=== PATIENT | female | born 1945 | race Hispanic/Latino ===

== ENCOUNTER 2025-05-21 11:02 | Inpatient (IN) | payer MEDICARE ==
[~2025-05-21] VITALS: Ht 154.9 cm; Wt 62.1 kg
[2025-05-21] VITALS (16 sets, daily range): BP systolic 106–143; BP diastolic 53–69; PULSE 77–97; RESP 16–25; TEMP 97.8; O2SAT 97–99
[2025-05-21] MEDS ORDERED: LIDOCAINE HCL 400MG/20ML VIAL ONE (11:27)
[2025-05-21] MEDS ORDERED: HEParin-NS 1,000 UNIT/500 ML 1,500 ML IV ONE (11:27)
[2025-05-21] MEDS ORDERED: NITROGLYCERIN 50MG VIAL ONE (11:27)
[2025-05-21] MEDS ORDERED: IOHEXOL 350 MG/ML 100ML INFUS..BTL IV ONE ×2 (11:28→12:17)
[2025-05-21] MEDS ORDERED: MIDAZOLAM HCL 1 MG/ML 2ML VIAL ONE (11:31)
[2025-05-21] MEDS ORDERED: BIVALIRUDIN 250 MG/VIAL IV ONE (11:53)
[2025-05-21] MEDS ORDERED: EPTIFIBATIDE 75MG/100ML BOTTLE 100 ML IV ONE (12:04)
[2025-05-21] MEDS ORDERED: EPTIFIBATIDE 2 MG/ML 10 ML VIAL IVP ONE (12:05)
[2025-05-21] MEDS: 0.9%NACL 1000ML 1,000 ML IV SCH (13:30)
[2025-05-21] MEDS ORDERED: GLUCAGON 1MG KIT 1 MG ML IM PRN ×2 (13:30→14:00)
[2025-05-21] MEDS ORDERED: DEXTROSE 50%-WATER 50 ML DISP.SYRIN IV PRN ×2 (13:30→14:00)
--- NOTE | 2025-05-21 13:43 | PRN ---
PROCEDURE NOTE Indications: ACS STEMI Procedures: Coronary angiogram, PCI with balloon angioplasty, IVUS assessment, and GRACE placement in the proximal LAD, femoral angiogram Introduction: After informed written consent was obtained, the patient was brought to the Catheterization Lab in the usual fasting state. Following sterile prep and drape, a time out was performed, then moderate sedation was administered, 1mg of Versed and 50mcg of Fentanyl, then 1% Lidocaine was infiltrated into the right femoral groin. Using a Modified Seldinger technique, a 6Fr Sheath was inserted into the right common femoral artery. While under fluoroscopic guidance, diagnostic coronary catheters were advanced over a wire into the central circulation where they were aspirated, flushed and placed to pressure monitoring, once the wire was removed. Coronary Angio: The left and right coronary arteries were engaged with appropriate catheters and angiography was performed under continuous pressure monitoring. Left Heart Catheterization: A pigtail catheter was inserted into the LV and the pressure was recorded, then the catheter was removed from the LV. Cardiac Findings: Right dominant system LM: Medium caliber vessel with mild luminal irregularities. LAD: Medium caliber vessel with 100% thrombotic occlusion of the proximal LAD. 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 The rest of the vessel has mild luminal irregularities. OM1: Small caliber vessel mild luminal irregularities OM2: Small caliber vessel mild luminal irregularities RCA: Medium caliber vessel with 40% stenosis in the proximal ICA and 80% stenosis in the mid RCA. RPDA: Small caliber vessel with mild luminal irregularities RPLV: Small caliber vessel with 50% stenosis in the ostial RPL be Medications given: Versed 1mg, Fentanyl 25mcg, heparin 5000 units, Integrilin IV and IC bolus followed by drip, nitroglycerin 200mcg, ticagrelor 180 mg Coronary Intervention: Guide catheter: JL4 Guidewire: 0.014 run-through, 0.014 BMW After reviewing the above mentioned findings the decision was made to intervene on the LAD. The JL 4 guide catheter was advanced into the ostial left main. We then advanced in the 0.014 runthrough guidewire across the area stenosis/thrombosis in the distal LAD. We then performed balloon angioplasty (2.0 x 10 mm > 2.5 x 15 mm) in the proximal LAD. Door to balloon time 48 min utes. We then administered entirely IV, IC bolus followed by IV. We then performed IVUS assessment of the proximal LAD. We then performed successful GRACE placement (Xience skypoint 3.0 x 23 mm) in the proximal LAD. The stent was post dilated using a 3.5 x 12 mm balloon achieving optimal results. Repeat angiography then revealed a widely patent and in the proximal LAD and SAUL three flow distally. The 0.014 runthrough guidewire, balloon and JL4 were then removed. Complications: None Conscious Sedation Monitoring: Under my direct order and supervision, medication for moderate conscious sedation was administered by the nursing staff and the patients level of consciousness and physiological status was monitored by an independent trained nurse. Closure of Access Site: After the case completed the sheath was pulled and a 6Fr Angioseal was deployed in the right common femoral artery without complication. Conclusion: 1. ACS-STEMI: Culprit lesion - 100% thrombotic occlusion in the proximal LAD status post successful treatment with balloon angioplasty and GRACE placement (Xience skypoint 3.0 x 23 mm). The stent was post dilated achieving optimal results 2. 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 Continue goal-directed medical therapy 2. Continue Integrilin IV drip for a total 12 hours (end time 12:00 a.m.) 3. Continue ticagrelor 90 mg BID and aspirin 81 mg daily. The patient will remain on that for a minimum of one year. 4. We will order a coronary CTA to evaluate the anomalous LCX and determine its course (intramuscular versus around the aorta). If the LCX goes around the aorta, then we will tentatively schedule the patient for staged PCI of the RCA and LCX on Saturday morning. 5. Groin precautions 6. 6 hours of bed rest 7. Start NS at 100 mL/hour x3 hours. 8. Please order an echocardiogram to assess systolic/diastolic function 9. Please order cardiac enzymes-high sensitivity troponin I and an ECG in the a.m. 10. Start metoprolol succinate 12.5 mg daily and atorvastatin 40 mg qhs. ALKA KIMBROUGH MD May 21, 2025 13:43
[2025-05-21] MEDS ORDERED: EPTIFIBATIDE 75MG/100ML BOTTLE 100 ML IV SCH (14:00)
[2025-05-21] MEDS ORDERED: PoTASSium chl 10% ELIXIR 20MEQ 20 MEQ/15 ML UDCUP PO PRN (14:00)
--- NOTE | 2025-05-21 14:35 | HP ---
[facility] HISTORY AND PHYSICAL Date of Service: May 21, 2025 Time of Service: 14:35 HISTORY OF PRESENT ILLNESS: Date of service: 05/21/2025, patient was seen in [facility] room 216 This is a 79-year-old female with history of hypertension, hyperlipidemia, who presented as a transfer from [facility]. Patient initially presented to the ER in [facility] with chief complaint of severe chest pain with associated radiation to the left shoulder and left arm. Symptoms started close to 10:00 p.m. last night and was progressive in intensity. Patient denies any previous history of cardiac comorbidities. She reports having history of hypertension and has been maintained on low-dose lisinopril as outpatient. She also reports taking Crestor as outpatient. Chest pain improved after receiving nitroglycerin. Patient underwent 12 lead EKG which showed findings of ST- elevation in the anterior leads. Patient was subsequently transferred to [facility] for management of ST-elevation [facility]. Patient underwent emergent cardiac catheterization by Dr. Ryan which showed findings of 100% thrombotic occlusion of the proximal LAD and patient underwent successful treatment with balloon angioplasty and GRACE placement to the proximal LAD. Patient was also found to have residual CAD involving proximal left circumflex with 72 80% stenosis and 80% stenosis involving the mid RCA. 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 Patient was seen postprocedure, patient denies active chest pain. She is feeling better post PCI. Plan is to obtain CT coronary angiogram tomorrow to investigate the anomalous left circumflex to assess to see if it is from intra muscular versus if it goes around the aorta. Patient will be monitored closely and we will see how patient progresses in the next 48-72 hours. REVIEW OF SYSTEMS CONSTITUTIONAL: Denies fevers, chills, or night sweats. No unintentional weight loss reported. NEUROLOGICAL: Denies headache, amaurosis fugax, motor weakness, sensory deficit, vertigo/spinning sensation, gait abnormalities, or tremors. ENT: No hearing loss, otalgia, otorrhea, rhinitis, rhinorrhea, hoarseness, or sore throat. CARDIOVASCULAR: Severe chest pain that started last night PULMONARY: Denies any shortness of breath, cough, phlegm/sputum, hemoptysis, pleuritic chest pain. SLEEP: Denies morning headaches, daytime somnolence or napping. Denies difficulty falling asleep, staying asleep, waking from sleep. Denies knowledge of snoring. GASTROINTESTINAL: Denies any type of dysphagia to either liquids or solids. Denies nausea, vomiting, pyrosis, early satiety, abdominal pain, diarrhea, c onstipation, or changes in stool consistency or caliber. Denies coffee-ground emesis, hematemesis, hematochezia, or melanotic stools. GENITOURINARY: Denies frequency, urgency, nocturia, hematuria or incontinence (Storage/Irritative symptoms.) Low urinary stream, straining to void, urinary intermittency or hesitancy, splitting of the voiding stream, terminal dribbling. ENDOCRINOLOGIC: Denies polyuria, polydipsia, polyphagia or heat/cold intolerances. HEMATOLOGIC: Denies thrombophilia/previous clots, or coagulopathy/bleeding disorders. ONCOLOGIC: Denies personal history of malignancy. DERMATOLOGIC: Denies rashes or pruritus. PSYCHIATRIC: Denies any suicidal or homicidal ideation. Denies hallucinations. PAST MEDICAL HISTORY: Hypertension, hyperlipidemia PAST SURGICAL HISTORY: Three C-sections previously, history of tonsillectomy PAST SOCIAL HISTORY: Denies active smoking or alcohol consumption, resides with at home, independent with ADLs FAMILY HISTORY: Reports family history of heart disease Allergies: Denies any medication allergy, patient reports having food allergies strawberries, pepper and coconut Home medications: Amlodipine 5 mg-benazepril 20 mg daily, rosuvastatin 40 mg daily Uncoded Allergies: strawberried, pepper/s, coconut (Allergy, Severe, edema and itching, 05/21/25) PHYSICAL EXAM GENERAL APPEARANCE: The patient is awake, alert, and oriented, in no acute cardiopulmonary distress. NEUROLOGICAL: Cranial nerves II-XII grossly intact. Motor is 5/5 in bilateral upper and lower extremities proximal to distal. No sensory deficits. HEENT: Face is symmetric. Pupils are equal and reactive. Extraocular movements are intact. NECK: Supple. No JVD. No thyromegaly. No submental, submandibular, pre- /postauricular, occipital or supraclavicular lymphadenopathy. CHEST: Normal chest expansion. No Telemetry. LUNGS: Absence of any rales, rhonchi or any wheezing. CARDIOVASCULAR: Regular. S1 and S2 normal. No appreciable rubs, murmurs or gallops. ABDOMEN: Soft, nontender, and nondistended. There is no rebound, voluntary guarding, or rigidity. : Deferred. No Mcgill. EXTREMITIES: Non-edematous and not cyanotic. No clubbing. Good capillary refill. SKIN: No skin breakdown. Vital Sign (Last 24 Hours) 05/21/25 05/21/25 13:49 13:58 Temp 97.9 Pulse 95 Resp 19 B/P (MAP) 122/66 Pulse Ox 84 O2 Delivery Nasal Cannula* O2 Flow Rate 4 FiO2 36 LABS: Labs from [facility] [place] [address], hemoglobin 14.0, platelet count of 136166, BMP, hepatic function panel, troponin and PTT currently pending Current Medications Medications (Trade) Dose Ordered Sig/Caitlyn Route PRN Reason Start Time Stop Time Status Last Admin Dose Admin Aspirin (Aspirin 81mg Ec Tab) 81 mg DAILY PO 05/22/25 09:00 06/21/25 08:59 UNV Atorvastatin Calcium (LIPItor 40MG) 40 mg HS PO 05/21/25 21:00 06/20/25 20:59 UNV Dextrose (D50w) 50 ml AD PRN IV HYPOGLYCEMIA PROTOCOL 05/21/25 13:30 06/20/25 13:29 UNV Dextrose (D50w) 50 ml AD PRN IV HYPOGLYCEMIA PROTOCOL 05/21/25 14:00 06/20/25 13:59 UNV Eptifibatide 100 ml @ 0 mls/hr PROTOCOL IV 05/21/25 14:00 05/22/25 00:01 UNV Glucagon (Glucagon 1mg Kit) 1 mg AD PRN IM HYPOGLYCEMIA PROTOCOL 05/21/25 13:30 06/20/25 13:29 UNV Glucagon (Glucagon 1mg Kit) 1 mg AD PRN IM HYPOGLYCEMIA PROTOCOL 05/21/25 14:00 06/20/25 13:59 UNV Insulin Human Regular (humuLIN R 100 UNIT/ML 3ML) INSULIN SLIDING SCAL... ACHS SQ 05/21/25 16:30 05/21/25 14:29 DC Ipratropium [place] (AtrovENT UD) 0.5 mg Q6H PRN IH SHORTNESS OF BREATH 05/21/25 14:30 06/20/25 14:29 UNV Isosorbide Mononitrate (Imdur 30mg Sr) 30 mg DAILY PO 05/22/25 09:00 06/21/25 08:59 UNV Magnesium Sulfate 50 ml @ 0 mls/hr PROTOCOL IV 05/21/25 14:00 06/20/25 13:59 UNV Metoprolol Succinate (TopROL XL) 12.5 mg DAILY PO 05/22/25 09:00 06/21/25 08:59 UNV Potassium Chloride 100 ml @ 100 mls/hr AD PRN IV POTASSIUM PROTOCOL 05/21/25 14:00 06/20/25 13:59 UNV Potassium Chloride (K-Dur/Klor-Con 20meq) 20 meq AD PRN PO POTASSIUM PROTOCOL 05/21/25 14:00 06/20/25 13:59 UNV Potassium Chloride (KCl 10% Elixir 20meq/15ml) 20 meq AD PRN PO POTASSIUM PROTOCOL 05/21/25 14:00 06/20/25 13:59 UNV Sodium Chloride 1,000 ml @ 100 mls/hr Q10H IV 05/21/25 13:30 05/21/25 16:29 UNV Ticagrelor (BRILinta) 90 mg BID PO 05/21/25 21:00 06/20/25 20:59 UNV DIAGNOSTICS / RADIOLOGY: SERVICE 1415 REASON: stemi ORDERING PHYSICIAN: ROMAN OLSON MD PROCEDURE: CXR1VW - CHEST 1VW EXAM: CR CHEST, 1 VIEW CLINICAL HISTORY: STEMI COMPARISON:None given. TECHNIQUE: Single frontal radiograph of the chest was obtained. FINDINGS: Lines/Devices: None. Lungs: Bilateral vascular congestion. Small atelactatic band in left lower lobe. No consolidation or ground-glass opacities are observed. There is no pleural effusion. There is no pneumothorax. Mediastinum and cardiovascular structures: The cardiac silhouette is mildly enlarged. The central airway and mediastinal contours are unremarkable. Bones and soft tissues: Unremarkable. IMPRESSION: 1. Mild cardiomegaly along with vascular congestion. /[place] DICTATED BY: JORGE ELLISON MD DATE: 05/21/251634 ELECTRONICALLY SIGNED BY: JORGE ELLISON MD DATE: 05/21/251634 ASSESSMENT: ST-elevation [facility]/ACS, POA Status post PCI with findings of 100% thrombotic occlusion of the proximal LAD status post balloon angioplasty and GRACE placement by Dr. 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 Ryan, patient will finish Integrilin gtt later tonight Continue with dual antiplatelet therapy with aspirin and Brilinta, patient will be on dual antiplatelet therapy for a minimum of 12 months post ACS We will maintain potassium greater than four and magnesium greater than two Continue with guideline directed medical therapy with metoprolol succinate 12.5 mg daily, Imdur 30 mg daily, and atorvastatin 40 mg at bedtime We will obtain a 2D echocardiogram tomorrow We will follow up CT coronary angiogram to further investigate anomalous origin of the left circumflex, per Dr. Ryan, If the left circumflex goes around the aorta, then there will be tentative plans for staged PCI of the RCA and left circumflex on Saturday All labs will be repeated in the morning, we will check CBC, CMP, cardiac panel, TSH, A1c We will have ICU service follow this patient along while patient remains in CCU Date of service: 05/21/2025 Plan of care was discussed with patient at bedside We will keep patient on GI prophylaxis with Pepcid, DVT prophylaxis with Lovenox starting tomorrow night Prognosis: Guarded Roman Olson MD Advanced Care Planning: Which of the following were discussed: Hospice care: Yes __ No _X_ Therapeutic options: Yes _X_ No __ Advance directives: Yes _X_ No __ Other discussions: Discussed with who?: Patient Voluntary nature of this service was explained to the patient? Yes _x_ No __ Amount of time spent: 20 minutes ROMAN OLSON MD May 21, 2025 14:35
--- NOTE | 2025-05-21 14:41 | CONS ---
Cardiology Consult Note Cardiology Attending: Alka Ryan Consulting Physician: Hospitalist Date of Service: 05/21/25 Reason for Consult: ACS-STEMI HPI: This is a 79-year-old female with a past medical history of DM II, HLD, HTN, who presents with chest pain, no began last night, at approximately 10:00 p.m.. These symptoms began spontaneously, although patient was watching TV. The pain was described as pressure-like in quality, 10/10 in intensity, with radiation to the jaw. The symptoms were exacerbated by anything, lasted throughout the night, and finally improved after she received nitroglycerin. Associated symptoms included palpitations, shortness of breath, and diaphoresis. Pertinent negatives include headache, syncope, PND, orthopnea, abdominal pain, nausea or vomiting. Be persistence of symptoms prompted the patient to go to [facility], where she was found to have ST-elevation in her anterior leads. She was subsequently diagnosed with ACS-STEMI. PMH: Listed above PSH: None FH: Significant for CAD, HTN, DMII, and CVA. SH: Denies alcohol, tobacco, or illicit drug use. Review of systems: General: Denies fever or chills HEENT: Denies changes in vision, earache or sore throat Neck: Denies pain or stiffness Cardio: As per the HPI Pulm: As per the HPI GI: Denies abdominal pain, nausea, vomiting, diarrhea, or constipation. MSK: Denies muscle or back pain. Heme: Denies anemia, easy bruising, or bleeding. Neuro: Denies headache, dizziness, or syncope. Psych: Denies anxiety, depression, or suicidal ideations. Physical Exam: Vital Signs Date Time Temp Pulse Resp B/P (MAP) Pulse Ox O2 Delivery O2 Flow Rate FiO2 05/21/25 13:58 Nasal Cannula* 4 36 05/21/25 13:49 97.9 95 19 122/66 84 General: Alert and oriented x 3. NAD HEENT: NC/AT. Oral mucosa is moist. Neck: No masses, JVD, or carotid bruits Lungs: NRD. SCM. B/L CTA. No wheezing, rales or rhonchi. Cardio: Rate @ 95bpm. Normal S1 and S2. +S4. PMI was not displaced. Abdomen: Soft. NT. ND. Normal active bowel sounds x 4 quadrants. Extremities: No edema, clubbing or cyanosis. +2 pulses noted throughout. Neuro: CN II-XII were grossly intact. No focal deficits. ECG 05/21/2025: Sinus tachycardia. ST-elevation seen in the anterior leads. Diffuse ST depression seen in the lateral and inferior leads Assessment: 1. ACS-STEMI 2. HTN 3. HLP 4. DM II Plan: 1. ACS-STEMI -hemodynamically stable -ECG 05/21/2025: Sinus tachycardia. ST-elevation seen in the anterior leads. Diffuse ST depression seen in the lateral and inferior leads -the patient presents with chest pain, that began last night, 10:00 p.m.. The symptoms began spontaneously, with the patient was watching TV. These symptoms lasted throughout the night, and prompted the patient to go the emergency room this morning where she was found to have ACS-STEMI. She was given aspirin and was started on heparin IV drip and has been transferred to [facility] where she will undergo a LHC/coronary angiogram/possible PCI. -further recommendations to follow. Thank you for this interesting consult and allowing us to participate in the care of patient. Further recommendations to follow ALKA RYAN MD May 21, 2025 14:40
--- NOTE | 2025-05-21 15:37 | HMCIMG ---
EXAM: CR CHEST, 1 VIEW CLINICAL HISTORY: STEMI COMPARISON:None given. TECHNIQUE: Single frontal radiograph of the chest was obtained. FINDINGS: Lines/Devices: None. Lungs: Bilateral vascular congestion. Small atelactatic band in left lower lobe. No consolidation or ground-glass opacities are observed. There is no pleural effusion. There is no pneumothorax. Mediastinum and cardiovascular structures: The cardiac silhouette is mildly enlarged. The central airway and mediastinal contours are unremarkable. Bones and soft tissues: Unremarkable. IMPRESSION: 1. Mild cardiomegaly along with vascular congestion. /[place]
--- NOTE | 2025-05-21 18:36 | CONS ---
[facility] CONSULTATION NOTE Date Patient Seen: May 21, 2025 Time of Visit: 18:21 Supervising Physician: DR. HUDSON MAZARIEGOS Reason for Consultation: STEMI Primary Care Physician: [ ] Outpatient Specialists: [ ] Inpatient Consults: [ ] PROBLEM LIST: 1. STEMI 2. STATUS POST LEFT HEART CATHETERIZATION 3. STATUS POST STENT PLACEMENT LAD 4. RCA 70-80% STENOSIS CHIEF COMPLAINT: Chest pain HPI: Patient is a 79-year-old female with past medical history significant for hypertension, hyperlipidemia, and a surgical history of x3, tonsillectomy, jaw surgery, presents to the Emergency today complaining of chest pain that started yesterday. Patient reports that for the past24 hours, she has been experiencing left-sided chest pain radiating to the left arm and rated as 6/10 in pain scale. Today, she was seen in the emergency department in the EKG showed STEMI, patient was taken to the general labor and a stent was placed in the LAD. Patient was assessed at bedside, denies fever, chills, nausea, vomiting, diarrhea, shortness of breath, chest pain, dizziness, or any other symptoms. Benchmark Team has been consulted due to STEMI. PAST MEDICAL HX: see above PAST SURGICAL HX: noncontributory SOCIAL HISTORY: No tobacco, ETOH, or illicit drug use Uncoded Allergies: strawberried, pepper/s, coconut (Allergy, Severe, edema and itching, 05/21/25) REVIEW OF SYSTEMS: 12 point ROS reviewed with patient. Pertinent positives mentioned above. Otherwise negative. PHYSICAL EXAM: GENERAL: alert, weak, awake oriented x 3 HEENT: EOMI, Sclera non icteric, moist mucosa NECK: Supple, no JVD, trachea midline LUNGS: Clear breath sounds bilaterally. No wheezes HEART: Regular rate and rhythm. Normal S1 and S2, without murmurs ABD: Abdomen soft, nontender. Bowel sounds present EXT: No clubbing cyanosis or edema NEURO: Alert and oriented to person, follows commands Vital Signs (last 8hr) Date Time Temp Pulse Resp B/P (MAP) Pulse Ox O2 Delivery O2 Flow Rate FiO2 05/21/25 16:16 98 Nasal Cannula* 2 28 05/21/25 16:15 18 N/Cannula Low lpm 2.0 28 05/21/25 14:37 92 16 128/66 98 Nasal Cannula 4.0 05/21/25 14:37 92 16 128/66 98 Nasal Cannula 4.0 05/21/25 14:22 94 21 131/69 97 Nasal Cannula 4.0 05/21/25 14:22 94 21 131/69 97 Nasal Cannula 4.0 05/21/25 13:58 Nasal Cannula* 4 36 05/21/25 13:49 97.9 95 19 122/66 84 Nasal Cannula 4.0 LABS: DIAGNOSTICS / RADIOLOGY RESULTS: [ ] PLAN : Keep patient in observation in ICU overnight Follow cardiology recommendation [id number] mg p.o. daily Ticagrelor 90 mg p.o. b.i.d. Metoprolol 12.5 mg p.o. daily Atorvastatin 40 mg p.o. at bedtime Follow cardiology recommendations NEURO: Minimize central acting medications as possible. Fall Precautions. Well lighted room through the day and minimize interruptions through the night to prevent acute delirium. PULMONARY: Supplemental 02 as needed Titrate Fio2 to keep Spo2 > or = 90% DuoNebs and CPT as needed IS hourly while awake for pulmonary hygiene Out of bed to chair as tolerated VAP Bundle Vent/BIPAP Settings: [ ] Driving pressure: [ ] P Plat: [ ] Static C: [ ] Static R: [ ] P/F Ratio: [ ] CARDIOVASCULAR: Follow hemodynamics. Titrate vasopressor to keep MAP >65 or systolic blood pressure >95mmHg [id number] mg p.o. daily Ticagrelor 90 mg p.o. b.i.d. Metoprolol 12.5 mg p.o daily DIPS: [ ] LINES: [ ] GI & NUTRITION: Continue nutritional support Aspirations precautions Prokinetic agents and laxatives as needed KIDNEYS & ELECTROLYTES: Strict monitoring of intake and output Daily weights Avoid nephrotoxic agents Monitor electrolytes and replace as needed Goal urine output of 30mL/hr or 0.5mL/kg/hr Urine output: [ ] Fluid Balance: [ ] ENDOCRINE: Maintain blood glucose between 100-180 at all times. Insulin sliding scale for blood glucose management INFECTIOUS DISEASE: Trend temperature. Johnson-culture if febrile. Micro: [ ] Antibiotics: [ ] HEMATOLOGY & COAGULATION: Monitor H&H. Keep Hgb > 7 Transfuse 1 unit of PRBC for Hgb < 7 Transfuse 1 pack of platelets of platelets < 20, 000 Watch for any signs and symptoms of bleeding SKIN: Pressure ulcer prevention per facility protocol Rehab: PT/OT Prophylaxis: GI: Famotidine DVT: eptifibatide Code Status: Full Resuscitation Disposition: Keep in ICU Other: Total patient care time exceeds 35 minutes excluding all procedures. Case was discussed and seen with my supervising physician DR. HUDSON MAZARIEGOS. The above plan was formulated and agreed upon. MILLIE TERRELL May 21, 2025 18:36
[2025-05-22] VITALS (59 sets, daily range): BP systolic 97–126; BP diastolic 42–85; PULSE 80–107; RESP 14–20; TEMP 98.3–99; O2SAT 96–97
[2025-05-22 04:44] LABS: IMMATURE GRANULOCYTE ABSOLUTE 0.05 K/uL (0-1); NUCLEATED RED BLOOD CELLS 0.0 % (0.0-0.19); PLATELET COUNT (AUTO) 218 K/uL (130-400); RED BLOOD CELL COUNT(AUTO) 3.88 MIL/uL (4.00-5.50); RED CELL DISTRIBUTION WIDTH 13.6 % (11.0-15.5); WHITE BLOOD COUNT (AUTO) 10.4 K/uL (4.8-10.8)
[2025-05-22 05:20] LABS: ASPARTATE AMINOTRANSFERASE 271.0 U/L (10-37); CREATININE 0.7 mg/dL (0.5-1.0); GLOMERULAR FILTR. RATE CALC 88.0 mL/min (>90); GLUCOSE,RANDOM 111.0 mg/dL (70-105); LDL DIRECT 121.0 mg/dL (0-99); SODIUM SERUM 138.0 mmol/L (136-145); TOTAL PROTEIN, SERUM 6.8 g/dL (6.0-8.3); UREA NITROGEN, BLOOD 14.0 mg/dL (7-18)
--- NOTE | 2025-05-22 05:59 | EKG ---
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
--- NOTE | 2025-05-22 06:37 | EKG ---
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
[2025-05-22] MEDS: FAMOTIDINE 20MG TAB PO SCH (09:30)
[2025-05-22] MEDS: ASPIRIN 81 MG EC TAB PO SCH (09:30)
[2025-05-22] MEDS: ISOSORBIDE MONO 30MG SR TAB PO SCH (09:30)
--- NOTE | 2025-05-22 13:52 | PN ---
[facility] CARDIOLOGY PROGRESS NOTE Date Patient Seen: May 22, 2025 Time of Visit: 13:29 Interval History: This is a 79-year-old female with a past medical history of DM II, HLD, HTN, who initially presented to [facility] on 05/21/2025 approximately 10:00 a.m (12 hours after onset of chest pain). She was found to have evidence of an anterior ST segment elevation [place] and was transferred to [facility] for urgent management. The patient underwent a heart catheterization on 05/21/2025 demonstrating three- vessel coronary artery disease with 100% thrombotic occlusion in the proximal LAD. She underwent successful PTCA and stenting with IVUS assessment and placement of a Xience Zaheer point 3.0 x 23 mm drug-eluting stent to the proximal LAD. 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 She is pending a CT coronary angiogram for further assessment of the anomalous left circumflex. She offers no recurrent chest pain, she offers no orthopnea or PND. Telemetry has demonstrated a normal sinus rhythm without arrhythmias. Physical Examination: GENERAL: No acute distress. HEAD: Normal with no signs of head trauma. EYES: PERRLA, EOMI, conjunctiva and sclera normal. NECK: Supple without JVD. There is no tenderness, lymphadenopathy, or masses. No thyromegaly. Normal carotid upstrokes without bruits. LUNGS: Clear breath sounds bilaterally. No wheezes, or rhonchi. HEART: Normal rate and rhythm. Normal S1 and S2 without murmurs, gallop or rub. VASC: Peripheral pulses +2 bilaterally. EXT: No clubbing, cyanosis or edema. The right groin is free of any bruising or hematoma. NEURO: Awake, alert, and oriented x3. No focal neurological deficits noted. Laboratory: Hematology Labs: Test 05/22/25 04:18 Range/Units White Blood Count 10.4 4.8-10.8 K/uL Red Blood Count 3.88 L 4.00-5.50 MIL/uL Hemoglobin 11.9 L 12.0-16.0 g/dL Hematocrit 36.4 36-48 % Mean Corpuscular Volume 93.8 79-99 fL Mean Corpuscular Hemoglobin 30.7 27.0-33.0 pg Mean Corpuscular Hemoglobin Concent 32.7 32.0-36.0 g/dL Red Cell Distribution Width 13.6 11.0-15.5 % Platelet Count 218 130-400 K/uL Mean Platelet Volume 12.4 H 7.5-10.5 fL Immature Granulocyte % (Auto) 0.5 0-1 % Neutrophils (%) (Auto) 71.1 40.0-77.0 % Lymphocytes (%) (Auto) 17.1 L 21.0-51.0 % Monocytes (%) (Auto) 10.3 3.0-13.0 % Eosinophils (%) (Auto) 0.7 0.0-8.0 % Basophils (%) (Auto) 0.3 0.0-5.0 % Neutrophils # (Auto) 7.4 1.8-7.7 K/uL Lymphocytes # (Auto) 1.8 1.0-4.8 K/uL Monocytes # (Auto) 1.1 H 0.1-1.0 K/uL Eosinophils # (Auto) 0.07 0.00-0.70 K/uL Basophils # (Auto) 0.03 0.00-0.20 K/uL Absolute Immature Granulocyte (auto 0.05 0-1 K/uL Nucleated Red Blood Cells 0.0 0.0-0.19 % Chemistry Labs: Test 05/22/25 04:18 Range/Units Sodium Level 138 136-145 mmol/L Potassium Level 4.3 3.5-5.1 mmol/L Chloride Level 105 101-111 mmol/L Carbon Dioxide Level 25 21-32 mmol/L Blood Urea Nitrogen 14 7-18 mg/dL Creatinine 0.7 0.5-1.0 mg/dL Glomerular Filtration Rate Calc 88 >90 mL/min Random Glucose 111 H 70-105 mg/dL Hemoglobin A1c 5.7 4.0-6.0 % Estimated Average Glucose (eAG) 117 70-126 mg/dL Total Calcium 8.6 8.5-10.1 mg/dL Magnesium Level 1.80 1.80-2.40 mg/dL Total Bilirubin 0.5 0.2-1.0 mg/dL Aspartate Amino Transf (AST/SGOT) 271 H 10-37 U/L Alanine Aminotransferase (ALT/SGPT) 56 12-78 U/L Alkaline Phosphatase 77 50-136 U/L Total Creatine Kinase 2010 *H 21-232 U/L Troponin I High Sensitivity 05069 *H 4-50 ng/L Total Protein 6.8 6.0-8.3 g/dL Albumin 3.0 L 3.5-5.0 g/dL Triglycerides Level 122 30-200 mg/dL Cholesterol Level 198 <200 mg/dL LDL Cholesterol 121 H 0-99 mg/dL HDL Cholesterol 44 35-85 mg/dL Thyroid Stimulating Hormone (TSH) 1.33 0.36-3.74 uIU/mL Diagnostics / Radiology: 2D echocardiogram is pending Impression and Plan: Acute anterior ST segment elevation IN: Three-vessel coronary artery disease with 100% thrombotic occlusion of the mid LAD (culprit lesion), status post successful PTCA and GRACE placement (Xience skypoint 3.0 x 23 mm) to the mid LAD: Residual 70%-80% stenosis in the proximal LCX and 80% stenosis and a mid RCA: 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 daily, Brilinta 90 mg p.o. b.i.d. -continue metoprolol and atorvastatin -the patient is scheduled to undergo a CT coronary angiogram to assess the a nomalous left circumflex and determine its course (intramuscular versus around the aorta). If the LCX goes around the aorta, then per Dr. Ryan, tentatively schedule the patient for staged PCI of the RCA and LCX early next week -monitor for any post [place] complications Comorbidities: Hypertension Hyperlipidemia Type 2 diabetes mellitus HERB CASILLASP May 22, 2025 13:52
--- NOTE | 2025-05-22 14:52 | PN ---
[facility] PROGRESS NOTE Date Patient Seen: May 22, 2025 Time of Visit: 14:49 Supervising Physician: Dr Bartolo Quispe Primary Care Physician: [ ] Outpatient Specialists: [ ] Inpatient Consults: [ ] PROBLEM LIST: 1. STEMI 2. STATUS POST LEFT HEART CATHETERIZATION 3. STATUS POST STENT PLACEMENT LAD 4. RCA 70-80% STENOSIS INTERVAL HISTORY: Patient was seen and examined, patient resting comfortably in bed, all labs and imaging have been reviewed Patient denying any chest pain or shortness of breath She remains on telemetry Discussion with patient and her family at bedside Cardiology pending a CTA on Saturday Tolerating her diet No acute events overnight Afebrile Plan: Following cardiology recs, Patient on aspirin, statin, metoprolol and Brilinta Continue with telemetry Imaging scheduled for Saturday REVIEW OF SYSTEMS: 12 point ROS reviewed with patient. Pertinent positives mentioned above. Otherwise negative. PHYSICAL EXAM: GENERAL: alert, weak, awake oriented x 3 HEENT: EOMI, Sclera non icteric, moist mucosa NECK: Supple, no JVD, trachea midline LUNGS: Clear breath sounds bilaterally. No wheezes HEART: Regular rate and rhythm. Normal S1 and S2, without murmurs ABD: Abdomen soft, nontender. Bowel sounds present EXT: No clubbing cyanosis or edema NEURO: Alert and oriented to person, follows commands Vital Signs (last 8hr) Date Time Temp Pulse Resp B/P (MAP) Pulse Ox O2 Delivery O2 Flow Rate FiO2 05/22/25 11:55 99.0 98 18 112/59 97 Room Air 05/22/25 09:16 107 17 96 Nasal Cannula 2.0 05/22/25 09:11 101 17 97 Nasal Cannula 2.0 05/22/25 09:07 94 15 113/59 95 Nasal Cannula 2.0 05/22/25 09:07 94 15 113/59 95 Nasal Cannula 2.0 05/22/25 09:06 91 17 97 Nasal Cannula 2.0 05/22/25 09:05 93 17 96 Nasal Cannula 2.0 05/22/25 09:01 94 15 95 Nasal Cannula 2.0 05/22/25 08:56 95 17 96 Nasal Cannula 2.0 05/22/25 08:51 99 15 97 Nasal Cannula 2.0 05/22/25 08:50 93 20 107/57 98 Nasal Cannula 2.0 05/22/25 08:46 91 15 98 Nasal Cannula 2.0 05/22/25 08:41 92 17 98 Nasal Cannula 2.0 05/22/25 08:37 85 17 116/57 99 Nasal Cannula 2.0 05/22/25 08:36 89 19 98 Nasal Cannula 2.0 05/22/25 08:31 86 16 98 Nasal Cannula 2.0 05/22/25 08:26 89 18 99 Nasal Cannula 2.0 05/22/25 08:21 93 19 97 Nasal Cannula 2.0 05/22/25 08:16 95 17 98 Nasal Cannula 2.0 05/22/25 08:11 93 17 97 Nasal Cannula 2.0 05/22/25 08:07 94 17 119/42 97 Nasal Cannula 2.0 05/22/25 08:06 96 17 98 Nasal Cannula 2.0 05/22/25 08:05 94 19 98 Nasal Cannula 2.0 05/22/25 08:00 97 18 96 Nasal Cannula 2.0 05/22/25 07:55 91 19 97 Nasal Cannula 2.0 05/22/25 07:50 93 17 97 Nasal Cannula 2.0 05/22/25 07:45 95 17 98 Nasal Cannula 2.0 05/22/25 07:40 95 17 99 Nasal Cannula 2.0 05/22/25 07:37 96 17 126/60 98 Nasal Cannula 2.0 05/22/25 07:35 101 17 98 Nasal Cannula 2.0 05/22/25 07:30 98 17 99 Nasal Cannula 2.0 05/22/25 07:25 86 17 98 Nasal Cannula 2.0 05/22/25 07:20 80 18 98 Nasal Cannula 2.0 05/22/25 07:15 84 17 98 Nasal Cannula 2.0 05/22/25 07:10 83 15 99 Nasal Cannula 2.0 05/22/25 07:07 85 14 124/61 99 Nasal Cannula 2.0 05/22/25 07:05 87 16 99 Nasal Cannula 2.0 05/22/25 07:00 98.6 91 17 99 Nasal Cannula 2.0 05/22/25 06:55 89 16 99 Nasal Cannula 2.0 05/22/25 06:51 88 16 99 Nasal Cannula 2.0 05/22/25 06:50 87 16 99 Nasal Cannula 05/22/25 06:50 87 16 99 Nasal Cannula 2.0 LABS: Hematology Labs: Test 05/22/25 04:18 Range/Units White Blood Count 10.4 4.8-10.8 K/uL Red Blood Count 3.88 L 4.00-5.50 MIL/uL Hemoglobin 11.9 L 12.0-16.0 g/dL Hematocrit 36.4 36-48 % Mean Corpuscular Volume 93.8 79-99 fL Mean Corpuscular Hemoglobin 30.7 27.0-33.0 pg Mean Corpuscular Hemoglobin Concent 32.7 32.0-36.0 g/dL Red Cell Distribution Width 13.6 11.0-15.5 % Platelet Count 218 130-400 K/uL Mean Platelet Volume 12.4 H 7.5-10.5 fL Immature Granulocyte % (Auto) 0.5 0-1 % Neutrophils (%) (Auto) 71.1 40.0-77.0 % Lymphocytes (%) (Auto) 17.1 L 21.0-51.0 % Monocytes (%) (Auto) 10.3 3.0-13.0 % Eosinophils (%) (Auto) 0.7 0.0-8.0 % Basophils (%) (Auto) 0.3 0.0-5.0 % Neutrophils # (Auto) 7.4 1.8-7.7 K/uL Lymphocytes # (Auto) 1.8 1.0-4.8 K/uL Monocytes # (Auto) 1.1 H 0.1-1.0 K/uL Eosinophils # (Auto) 0.07 0.00-0.70 K/uL Basophils # (Auto) 0.03 0.00-0.20 K/uL Absolute Immature Granulocyte (auto 0.05 0-1 K/uL Nucleated Red Blood Cells 0.0 0.0-0.19 % Chemistry Labs: Test 05/22/25 04:18 Range/Units Sodium Level 138 136-145 mmol/L Potassium Level 4.3 3.5-5.1 mmol/L Chloride Level 105 101-111 mmol/L Carbon Dioxide Level 25 21-32 mmol/L Blood Urea Nitrogen 14 7-18 mg/dL Creatinine 0.7 0.5-1.0 mg/dL Glomerular Filtration Rate Calc 88 >90 mL/min Random Glucose 111 H 70-105 mg/dL Hemoglobin A1c 5.7 4.0-6.0 % Estimated Average Glucose (eAG) 117 70-126 mg/dL Total Calcium 8.6 8.5-10.1 mg/dL Magnesium Level 1.80 1.80-2.40 mg/dL Total Bilirubin 0.5 0.2-1.0 mg/dL Aspartate Amino Transf (AST/SGOT) 271 H 10-37 U/L Alanine Aminotransferase (ALT/SGPT) 56 12-78 U/L Alkaline Phosphatase 77 50-136 U/L Total Creatine Kinase 2010 *H 21-232 U/L Troponin I High Sensitivity 23553 *H 4-50 ng/L Total Protein 6.8 6.0-8.3 g/dL Albumin 3.0 L 3.5-5.0 g/dL Triglycerides Level 122 30-200 mg/dL Cholesterol Level 198 <200 mg/dL LDL Cholesterol 121 H 0-99 mg/dL HDL Cholesterol 44 35-85 mg/dL Thyroid Stimulating Hormone (TSH) 1.33 0.36-3.74 uIU/mL DIAGNOSTICS / RADIOLOGY RESULTS: [ ] PLAN NEURO: Minimize central acting medications as possible. Maintain fall precautions, adequate lighting during the day PULMONARY: Supplemental 02 as needed. Maintain aspiration precautions at all times CARDIOVASCULAR: Follow hemodynamics. Vital signs per facility protocol GI & NUTRITION: Continue with nutritional support. Continue stool softeners and laxatives as needed. KIDNEYS & ELECTROLYTES: Strict monitoring of intake, output and overall fluid balance. Avoid nephrotoxic medications to the extent possible. Medications to be dosed according to renal function. Monitor electrolytes and replace as needed ENDOCRINE: Maintain blood glucose between 100-180 at all times. Hypoglycemia protocol in place INFECTIOUS DISEASE: Trend temperature, WBC and procalcitonin level Follow cultures, deescalate antibiotics as soon as possible. Panculture if new onset fever ONCOLOGY/HEMATOLOGY/COAGULATION: Monitor for s/s of bleeding Monitor hemoglobin, coagulation studies as needed SKIN: Pressure ulcer prevention per facility protocol Specialty mattress ORTHO/REHAB: Continue PT/OT Prophylaxis: Continue GI and DVT prophylaxis Code Status: Full Resuscitation Disposition: ALKA BONILLA PAC May 22, 2025 14:52
--- NOTE | 2025-05-22 16:23 | NUR ---
DCP: INITIAL ASSESSMENT Patient lives with spouse. She has no home services. Patient has BPM at home. She is able to complete ADLs independently and drives. PCP is Dr. Taj Aaron. Pharmacy is [facility] in [place]. Patient voiced no safety concerns regarding returning home and states she has no difficulty with housing or buying food. DCP is home.
--- NOTE | 2025-05-22 16:24 | NUR ---
EMERGENCY CONTACT Lo Shi (daughter) [phone] Dominga Luo (daughter) [phone]
--- NOTE | 2025-05-22 18:46 | PN ---
[facility] PROGRESS NOTE Date of Service: May 22, 2025 Time of Service: 18:46 SUBJECTIVE: This is a 79-year-old female with history of hypertension, hyperlipidemia, who presented as a transfer from [facility]. Patient initially presented to the ER in [facility] with chief complaint of severe chest pain with associated radiation to the left shoulder and left arm. Symptoms started close to 10:00 p.m. last night and was progressive in intensity. Patient denies any previous history of cardiac comorbidities. She reports having history of hypertension and has been maintained on low-dose lisinopril as outpatient. She also reports taking Crestor as outpatient. Chest pain improved after receiving nitroglycerin. Patient underwent 12 lead EKG which showed findings of ST- elevation in the anterior leads. Patient was subsequently transferred to [facility] for management of ST-elevation [place]. Patient underwent emergent cardiac catheterization by Dr. Ryan which showed findings of 100% thrombotic occlusion of the proximal LAD and patient underwent successful treatment with balloon angioplasty and GRACE placement to the proximal LAD. Patient was also found to have residual CAD involving proximal left circumflex with 72 80% stenosis and 80% stenosis involving the mid RCA. 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 Patient was seen postprocedure, patient denies active chest pain. She is feeling better post PCI. Plan is to obtain CT coronary angiogram tomorrow to investigate the anomalous left circumflex to assess to see if it is from intramuscular versus if it goes around the aorta. Patient will be monitored closely and we will see how patient progresses in the next 48-72 hours. 05/22/2025: Patient was seen and examined with family present in room 228, patient resting comfortably in bed. Patient denying any chest pain or shortness of breath. She remains on telemetry. Tolerating her diet. Cardiology recommended that the patient be continued on dual antiplatelet therapy with [id number] mg p.o. daily, Brilinta 90 mg p.o. b.i.d. they also want to continue metoprolol and atorvastatin. the patient is scheduled to undergo a CT coronary angiogram to assess the anomalous left circumflex and determine its course (intramuscular versus around the aorta). If the LCX goes around the aorta, then per Dr. Ryan, tentatively schedule the patient for staged PCI of the RCA and LCX early next week. Cardiology pending a CTA on Saturday. Benchmark Team has been consulted due to STEMI. Waiting on echo result. REVIEW OF SYSTEMS CONSTITUTIONAL: Denies fevers, chills, or night sweats. No unintentional weight loss reported. NEUROLOGICAL: Denies headache, motor weakness, sensory deficit, vertigo/spinning sensation, gait abnormalities, or tremors. ENT: No hearing loss, rhinitis, rhinorrhea, hoarseness, or sore throat. CARDIOVASCULAR: Denies any exertional angina, dyspnea on exertion, orthopnea, paroxysmal nocturnal dyspnea, palpitations PULMONARY: Denies any shortness of breath, cough, phlegm/sputum, hemoptysis, pleuritic chest pain. GASTROINTESTINAL: Denies any type of dysphagia to either liquids or solids. Denies nausea, vomiting, abdominal pain, diarrhea, constipation, or changes in stool consistency or caliber. GENITOURINARY: Denies frequency, urgency, nocturia, hematuria or incontinence. ENDOCRINOLOGIC: Denies polyuria, polydipsia, polyphagia or heat/cold intolerances. DERMATOLOGIC: Denies rashes or pruritus. PHYSICAL EXAM GENERAL APPEARANCE: The patient is awake, alert, and oriented, in no acute cardiopulmonary distress. NEUROLOGICAL: Alert and oriented to person, follows commands, No sensory deficits. HEENT: Face is symmetric. Pupils are equal and reactive. Extraocular movements are intact. NECK: Supple. No thyromegaly. No submental, submandibular, pre-/postauricular, occipital or supraclavicular lymphadenopathy. CHEST: Normal chest expansion. No Telemetry. LUNGS: Absence of any rales, rhonchi or any wheezing. CARDIOVASCULAR: Regular. S1 and S2 normal. No appreciable rubs, murmurs or gallops. ABDOMEN: Soft, nontender, and nondistended. There is no rebound, voluntary guarding, or rigidity. : Deferred. No Mcgill. EXTREMITIES: Non-edematous and not cyanotic. No clubbing. Good capillary refill. SKIN: No skin breakdown. Vital Signs (last 8hr) Date Time Temp Pulse Resp B/P (MAP) Pulse Ox O2 Delivery O2 Flow Rate FiO2 05/22/25 16:50 99.0 89 18 106/55 94 Room Air 05/22/25 11:55 99.0 98 18 112/59 97 Room Air LABS: Laboratory: Test 05/22/25 04:18 Range/Units White Blood Count 10.4 4.8-10.8 K/uL Red Blood Count 3.88 L 4.00-5.50 MIL/uL Hemoglobin 11.9 L 12.0-16.0 g/dL Hematocrit 36.4 36-48 % Mean Corpuscular Volume 93.8 79-99 fL Mean Corpuscular Hemoglobin 30.7 27.0-33.0 pg Mean Corpuscular Hemoglobin Concent 32.7 32.0-36.0 g/dL Red Cell Distribution Width 13.6 11.0-15.5 % Platelet Count 218 130-400 K/uL Mean Platelet Volume 12.4 H 7.5-10.5 fL Immature Granulocyte % (Auto) 0.5 0-1 % Neutrophils (%) (Auto) 71.1 40.0-77.0 % Lymphocytes (%) (Auto) 17.1 L 21.0-51.0 % Monocytes (%) (Auto) 10.3 3.0-13.0 % Eosinophils (%) (Auto) 0.7 0.0-8.0 % Basophils (%) (Auto) 0.3 0.0-5.0 % Neutrophils # (Auto) 7.4 1.8-7.7 K/uL Lymphocytes # (Auto) 1.8 1.0-4.8 K/uL Monocytes # (Auto) 1.1 H 0.1-1.0 K/uL Eosinophils # (Auto) 0.07 0.00-0.70 K/uL Basophils # (Auto) 0.03 0.00-0.20 K/uL Absolute Immature Granulocyte (auto 0.05 0-1 K/uL Nucleated Red Blood Cells 0.0 0.0-0.19 % Sodium Level 138 136-145 mmol/L Potassium Level 4.3 3.5-5.1 mmol/L Chloride Level 105 101-111 mmol/L Carbon Dioxide Level 25 21-32 mmol/L Blood Urea Nitrogen 14 7-18 mg/dL Creatinine 0.7 0.5-1.0 mg/dL Glomerular Filtration Rate Calc 88 >90 mL/min Random Glucose 111 H 70-105 mg/dL Hemoglobin A1c 5.7 4.0-6.0 % Estimated Average Glucose (eAG) 117 70-126 mg/dL Total Calcium 8.6 8.5-10.1 mg/dL Magnesium Level 1.80 1.80-2.40 mg/dL Total Bilirubin 0.5 0.2-1.0 mg/dL Aspartate Amino Transf (AST/SGOT) 271 H 10-37 U/L Alanine Aminotransferase (ALT/SGPT) 56 12-78 U/L Alkaline Phosphatase 77 50-136 U/L Total Creatine Kinase 2011 *H 21-232 U/L Troponin I High Sensitivity 51202 *H 4-50 ng/L Total Protein 6.8 6.0-8.3 g/dL Albumin 3.0 L 3.5-5.0 g/dL Triglycerides Level 122 30-200 mg/dL Cholesterol Level 198 <200 mg/dL LDL Cholesterol 121 H 0-99 mg/dL HDL Cholesterol 44 35-85 mg/dL Thyroid Stimulating Hormone (TSH) 1.33 0.36-3.74 uIU/mL Current Medications Medications (Trade) Dose Ordered Sig/Caitlyn Route PRN Reason Start Time Stop Time Status Last Admin Dose Admin Acetaminophen (TYLenol 325MG TAB) 650 mg Q6H PRN PO MILD PAIN (1-3) 05/21/25 15:00 06/20/25 14:59 Aspirin (Aspirin 81mg Ec Tab) 81 mg DAILY PO 05/22/25 09:00 06/21/25 08:59 05/22/25 09:30 81 MG Atorvastatin Calcium (LIPItor 40MG) 40 mg HS PO 05/21/25 21:00 06/20/25 20:59 05/21/25 19:58 40 MG Dextrose (D50w) 50 ml AD PRN IV HYPOGLYCEMIA PROTOCOL 05/21/25 13:30 06/20/25 13:29 UNV Dextrose (D50w) 50 ml AD PRN IV HYPOGLYCEMIA PROTOCOL 05/21/25 14:00 06/20/25 13:59 Enoxaparin Sodium (Lovenox) 40 mg HS SQ 05/22/25 21:00 06/21/25 20:59 Eptifibatide 100 ml @ 0 mls/hr PROTOCOL IV 05/21/25 14:00 05/22/25 00:01 DC Famotidine (Pepcid 20mg Tab) 20 mg DAILY PO 05/22/25 09:00 06/21/25 08:59 05/22/25 09:30 20 MG Glucagon (Glucagon 1mg Kit) 1 mg AD PRN IM HYPOGLYCEMIA PROTOCOL 05/21/25 13:30 06/20/25 13:29 UNV Glucagon (Glucagon 1mg Kit) 1 mg AD PRN IM HYPOGLYCEMIA PROTOCOL 05/21/25 14:00 06/20/25 13:59 Insulin Human Regular (humuLIN R 100 UNIT/ML 3ML) INSULIN SLIDING SCAL... ACHS SQ 05/21/25 16:30 05/21/25 14:29 DC Ipratropium [place] (AtrovENT UD) 0.5 mg Q6H PRN IH SHORTNESS OF BREATH 05/21/25 14:30 06/20/25 14:29 Isosorbide Mononitrate (Imdur 30mg Sr) 30 mg DAILY PO 05/22/25 09:00 06/21/25 08:59 05/22/25 09:30 30 MG Magnesium Sulfate 50 ml @ 0 mls/hr PROTOCOL IV 05/21/25 14:00 06/20/25 13:59 Metoprolol Succinate (TopROL XL) 12.5 mg DAILY PO 05/22/25 09:00 06/21/25 08:59 05/22/25 09:30 12.5 MG Ondansetron HCl (zoFRAN 4MG INJ) 4 mg Q6H PRN IVP NAUSEA/VOMITING 05/21/25 15:00 06/20/25 14:59 Potassium Chloride 100 ml @ 100 mls/hr AD PRN IV POTASSIUM PROTOCOL 05/21/25 14:00 06/20/25 13:59 Potassium Chloride (K-Dur/Klor-Con 20meq) 20 meq AD PRN PO POTASSIUM PROTOCOL 05/21/25 14:00 06/20/25 13:59 Potassium Chloride (KCl 10% Elixir 20meq/15ml) 20 meq AD PRN PO POTASSIUM PROTOCOL 05/21/25 14:00 06/20/25 13:59 Sodium Chloride 1,000 ml @ 100 mls/hr Q10H IV 05/21/25 13:30 05/21/25 16:29 DC Ticagrelor (BRILinta) 90 mg BID PO 05/21/25 21:00 06/20/25 20:59 05/22/25 09:30 90 MG DIAGNOSTICS / RADIOLOGY: [ ] ASSESSMENT: ST-elevation [place]/ACS, POA Status post PCI with findings of 100% thrombotic occlusion of the proximal LAD status post balloon angioplasty and GRACE placement by Dr. 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 Ryan, 05/21/2025: * Patient will continue with close monitoring in CCU post STEMI/ACS * Continue with post catheterization care per recommendations by Dr. 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 If the LCX goes around the aorta, then per Dr. Ryan, tentatively schedule the patient for staged PCI of the RCA and LCX early next week * Cardiology pending a CTA on Saturday Acute hypoxemic respiratory failure, POA * Patient off of nasal cannula now on room air GI prophylaxis with famotidine 20 mg DVT prophylaxis with enoxaparin sodium We will repeat a.m. labs Further treatment based on the results ATTESTATION BY PHYSICIAN I have seen and examined the patient. I reviewed the documentation, medical dec ision making, and treatment plan as noted by the resident physician above. I agree with the findings and plan of care. SHANTEL WAHL MD, ABHINAV MD May 22, 2025 18:46
[2025-05-22] MEDS ORDERED: FAMOTIDINE 20MG TAB PO SCH (21:00)
[2025-05-22] MEDS: ENOXAPARIN SODIUM 40 MG/0.4 ML SYRINGE SQ SCH (21:41)
[2025-05-22 22:32] LABS: APPEARANCE,URINE CLEAR (CLEAR); GLUCOSE, URINE (UA) NEGATIVE (NEGATIVE); LEUKOCYTE ESTERASE ,URINE 500 Leu/uL (NEGATIVE); NITRATE,URINE NEGATIVE (NEGATIVE); OCCULT BLOOD,URINE SMALL (NEGATIVE)
[2025-05-22 22:35] LABS: ADD UA MICROSCOPIC YES
[2025-05-22 22:37] LABS: SQUAMOUS EPITHELIAL CELL,UR RARE /HPF (0-2)
--- NOTE | 2025-05-22 23:04 | HMCSR ---
APPROVED REPORT EXAM: Two-dimensional and M-mode echocardiogram with Doppler and color Doppler. INDICATION ICD: ST-elevation [place] 2D Dimensions RVDd 3.6 cm LVEF(%) 28.2 (>50%) LVED Vol(simp.) 94.0 mL IVSd 0.6 (0.7-1.1cm) FS(%) 13 % LVES Vol(simp.) 57.0 mL LVDd 4.4 (3.8-5.6cm) LA (2D) 3.3 (1.6-4.0cm) LVEF(%, simp.) 39 % PWd 0.7 (0.7-1.1cm) Ao Root(2D) 2.8 (2.0-3.7cm) LA ESV INDEX (BP) 24.45 mL/m2 IVSs 0.7 cm LVOT diam 1.9 (1.8-2.4cm) LVDs 3.8 (2.5-4.0cm) IVC diam 2.1 cm PWs 0.9 cm Deformation Strain Apical 4 -9.6 % Apical 2 -10.6 % Apical 3 -9.0 % Global Strain -9.7 % M-Mode Dimensions EPSS 0.4 cm LA (MM) 3.4 (1.6-4.0cm) Ao Root(MM) 2.7 (2.0-3.7cm) Aortic Valve AoV Vmax 1.5 m/s Ao Peak GR 9.5 mmHg LVOT Vmax 1.0 m/s AoV VTI 0.3 m Ao Mean GR 5.1 mmHg LVOT VTI 0.22 m INGRIS (VMAX) 1.85 cm2 INGRIS (VTI) 2.4 cm2 Mitral Valve MV E Vmax 75.1 cm/s DECEL Time 107 ms MV A Vmax 116.6 cm/s P 1/2 T 41 ms E/A ratio 0.6 MVA (PHT) 5.4 cm2 TDI E/E' Medial 21.6 E/E' Lateral 31.3 Medial E' Peak V 3.47 cm/s Lateral E' Peak V 2.40 cm/s Pulmonary Valve PV Vmax 0.9 m/s PV VTI 0.15 m PV Mean GR 2.3 mmHg PV Peak GR 3.5 mmHg Tricuspid Valve TR Vmax 2.7 m/s RAP (EST) 8 mmHg RVSP 38.2 mmHg TR Peak GR 30.2 mmHg Left Ventricle The left ventricle is normal size. The apical anterior septal wall, apical inferior septal wall, apical anterior wall, apical anterior lateral, apical inferior lateral and apex are hypokinetic. The other ashley are grossly normal in function. Mild concentric left ventricular hypertrophy. Left ventricle systolic function is moderately depressed, estimated LVEF is 40 to 45%. Stage I diastolic dysfunction. Right Ventricle The right ventricle is normal size. Right ventricular systolic function is borderline reduced. Atria The left atrium size is normal. The right atrium size is normal. Aortic Valve Aortic valve trileaflet. The leaflets are mildly thickened and calcified. Trace aortic regurgitation. There is no aortic valvular stenosis. Mitral Valve The mitral valve is normal in structure. Trace mitral regurgitation. There is no mitral valve stenosis. Tricuspid Valve The tricuspid valve is normal in structure. Mild tricuspid regurgitation. RVSP is 30 mmHg. Pulmonic Valve Pulmonic valve is not well visualized. Great Vessels The aortic root is normal in size. IVC is not well visualized. Pericardium There is no pericardial effusion. Other Information Quality : Adequate Conclusion The cardiac chambers are normal in size. Mild concentric left ventricular hypertrophy. The apical anterior septal wall, apical inferior septal wall, apical anterior wall, apical anterior lateral, apical inferior lateral and apex are hypokinetic. The other ashley are grossly normal in function. Left ventricle systolic function is moderately depressed, estimated LVEF is 40 to 45%. Stage I diastolic dysfunction. Trace aortic regurgitation. Trace mitral regurgitation. Mild tricuspid regurgitation. RVSP is 30 mmHg. There is no pericardial effusion.
[2025-05-23] VITALS (7 sets, daily range): BP systolic 101–182; BP diastolic 57–86; PULSE 84–103; RESP 17–18; TEMP 98.3–98.8; O2SAT 96–99
[2025-05-23 03:57] LABS: IMMATURE GRANULOCYTE ABSOLUTE 0.04 K/uL (0-1); NUCLEATED RED BLOOD CELLS 0.0 % (0.0-0.19); PLATELET COUNT (AUTO) 202 K/uL (130-400); RED BLOOD CELL COUNT(AUTO) 3.59 MIL/uL (4.00-5.50); RED CELL DISTRIBUTION WIDTH 13.3 % (11.0-15.5); WHITE BLOOD COUNT (AUTO) 10.3 K/uL (4.8-10.8)
[2025-05-23 04:25] LABS: ASPARTATE AMINOTRANSFERASE 144.0 U/L (10-37); CREATININE 0.8 mg/dL (0.5-1.0); GLOMERULAR FILTR. RATE CALC 75.0 mL/min (>90); GLUCOSE,RANDOM 97.0 mg/dL (70-105); SODIUM SERUM 137.0 mmol/L (136-145); TOTAL PROTEIN, SERUM 6.5 g/dL (6.0-8.3); UREA NITROGEN, BLOOD 16.0 mg/dL (7-18)
[2025-05-23 04:55] LABS: CREATINE KINASE, TOTAL 548.0 U/L (21-232)
--- NOTE | 2025-05-23 10:36 | PN ---
[facility] PROGRESS NOTE Date Patient Seen: May 23, 2025 Time of Visit: 10:26 Interval History: This is a 79-year-old female with a past medical history of DM II, HLD, HTN, who initially presented to [facility] on 05/21/2025 approximately 10:00 a.m (12 hours after onset of chest pain). She was found to have evidence of an anterior ST segment elevation [place] and was transferred to [facility] for urgent management. The patient underwent a heart catheterization on 05/21/2025 demonstrating three- vessel coronary artery disease with 100% thrombotic occlusion in the proximal LAD. She underwent successful PTCA and stenting with IVUS assessment and placement of a Xience Zaheer point 3.0 x 23 mm drug-eluting stent to the proximal LAD. 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 She is pending a CT coronary angiogram for further assessment of the anomalous left circumflex. A 2D echocardiogram on 05/22/2025 demonstrated apical anterior septal wall, apical inferior septal wall, apical anterior wall, apical anterior lateral, apical inferior lateral and apex to be hypokinetic, mild concentric LVH and an LVEF of 40-45% and stage I diastolic dysfunction. She is awaiting a CT coronary angiogram for further assessment of the anomalous left circumflex. Overnight, she has offered no chest pain but noted that on occasion she will feel the need to take a deep breath when laying down. Physical Examination: GENERAL: No acute distress. HEAD: Normal with no signs of head trauma. EYES: PERRLA, EOMI, conjunctiva and sclera normal. NECK: Supple without JVD. There is no tenderness, lymphadenopathy, or masses. No thyromegaly. Normal carotid upstrokes without bruits. LUNGS: Clear breath sounds bilaterally. No wheezes, or rhonchi. HEART: Normal rate and rhythm. Normal S1 and S2 without murmurs, gallop or rub. VASC: Peripheral pulses +2 bilaterally. EXT: No clubbing, cyanosis or edema. The right groin is free of any bruising or hematoma. NEURO: Awake, alert, and oriented x3. No focal neurological deficits noted. Laboratory: Hematology Labs: Test 05/23/25 03:34 Range/Units White Blood Count 10.3 4.8-10.8 K/uL Red Blood Count 3.59 L 4.00-5.50 MIL/uL Hemoglobin 11.1 L 12.0-16.0 g/dL Hematocrit 32.9 L 36-48 % Mean Corpuscular Volume 91.6 79-99 fL Mean Corpuscular Hemoglobin 30.9 27.0-33.0 pg Mean Corpuscular Hemoglobin Concent 33.7 32.0-36.0 g/dL Red Cell Distribution Width 13.3 11.0-15.5 % Platelet Count 202 130-400 K/uL Mean Platelet Volume 12.5 H 7.5-10.5 fL Immature Granulocyte % (Auto) 0.4 0-1 % Neutrophils (%) (Auto) 60.0 40.0-77.0 % Lymphocytes (%) (Auto) 26.9 21.0-51.0 % Monocytes (%) (Auto) 10.2 3.0-13.0 % Eosinophils (%) (Auto) 2.0 0.0-8.0 % Basophils (%) (Auto) 0.5 0.0-5.0 % Neutrophils # (Auto) 6.1 1.8-7.7 K/uL Lymphocytes # (Auto) 2.8 1.0-4.8 K/uL Monocytes # (Auto) 1.1 H 0.1-1.0 K/uL Eosinophils # (Auto) 0.21 0.00-0.70 K/uL Basophils # (Auto) 0.05 0.00-0.20 K/uL Absolute Immature Granulocyte (auto 0.04 0-1 K/uL Nucleated Red Blood Cells 0.0 0.0-0.19 % Chemistry Labs: Test 05/23/25 03:34 05/22/25 04:18 Range/Units Sodium Level 137 136-145 mmol/L Potassium Level 4.1 3.5-5.1 mmol/L Chloride Level 104 101-111 mmol/L Carbon Dioxide Level 24 21-32 mmol/L Blood Urea Nitrogen 16 7-18 mg/dL Creatinine 0.8 0.5-1.0 mg/dL Glomerular Filtration Rate Calc 75 >90 mL/min Random Glucose 97 70-105 mg/dL Total Calcium 8.5 8.5-10.1 mg/dL Total Bilirubin 0.4 0.2-1.0 mg/dL Direct Bilirubin 0.1 0.0-0.3 mg/dL Aspartate Amino Transf (AST/SGOT) 144 H 10-37 U/L Alanine Aminotransferase (ALT/SGPT) 38 # 12-78 U/L Alkaline Phosphatase 66 50-136 U/L Total Creatine Kinase 548 #*H 21-232 U/L Troponin I High Sensitivity 47788 *H 4-50 ng/L Total Protein 6.5 6.0-8.3 g/dL Albumin 2.8 L 3.5-5.0 g/dL Thyroid Stimulating Hormone (TSH) 2.42 # 0.36-3.74 uIU/mL Hemoglobin A1c 5.7 4.0-6.0 % Estimated Average Glucose (eAG) 117 70-126 mg/dL Magnesium Level 1.80 1.80-2.40 mg/dL Triglycerides Level 122 30-200 mg/dL Cholesterol Level 198 <200 mg/dL LDL Cholesterol 121 H 0-99 mg/dL HDL Cholesterol 44 35-85 mg/dL Diagnostics / Radiology: Conclusion The cardiac chambers are normal in size. Mild concentric left ventricular hypertrophy. The apical anterior septal wall, apical inferior septal wall, apical anterior wall, apical anterior lateral, apical inferior lateral and apex are hypokinetic. The other ashley are grossly normal in function. Left ventricle systolic function is moderately depressed, estimated LVEF is 40 to 45%. Stage I diastolic dysfunction. Trace aortic regurgitation. Trace mitral regurgitation. Mild tricuspid regurgitation. RVSP is 30 mmHg. There is no pericardial effusion. 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 daily, Brilinta 90 mg p.o. b.i.d. -continue metoprolol and atorvastatin -the patient is scheduled to undergo a CT coronary angiogram to assess the anomalous left circumflex and determine its course (intramuscular versus around the aorta). If the LCX goes around the aorta, then per Dr. Ryan, tentative ly schedule the patient for staged PCI of the RCA and LCX early next week Mild ischemic cardiomyopathy with an LVEF of 40-45% by 2D echocardiogram 05/22/2025: Stage I diastolic dysfunction: Acute systolic congestive heart failure -begin Entresto 24/26 mg one tab p.o. b.i.d. -she noted occasional need to take a deep breath overnight and a chest x-ray today demonstrates CHF changes and her BNP today was 546 -Lasix 20 mg IV x1 today followed by Lasix 20 mg p.o. daily -continue beta-benjamni therapy and the addition of Entresto to her medical regimen today -we will add SGLT2 inhibitor depending on her CT angiogram report and need for any further invasive assessment Hyperlipidemia with lipid panel 05/22/2025 demonstrating total cholesterol 188, HDL 44, LDL 121 and triglycerides 122: -continue atorvastatin 40 mg p.o. 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
[2025-05-23] MEDS: SACUBITRIL/VALSARTAN 1 EACH TABLET PO SCH (11:00)
--- NOTE | 2025-05-23 12:10 | PN ---
[facility] PROGRESS NOTE Date Patient Seen: May 23, 2025 Time of Visit: 12:08 Supervising Physician: Dr Bartolo Quispe Primary Care Physician: [ ] Outpatient Specialists: [ ] Inpatient Consults: [ ] PROBLEM LIST: 1. STEMI 2. STATUS POST LEFT HEART CATHETERIZATION 3. STATUS POST STENT PLACEMENT LAD 4. RCA 70-80% STENOSIS INTERVAL HISTORY: Patient was seen and examined, patient resting comfortably in bed, all labs and imaging have been reviewed Patient denying any chest pain or shortness of breath Good saturations on room air No family at bedside No complaints Tolerating diet Afebrile NPO midnight for CTA tomorrow Plan: Following cardiology recs, Patient on aspirin, statin, metoprolol and Brilinta Continue with telemetry CTA on Saturday, place NPO midnight REVIEW OF SYSTEMS: 12 point ROS reviewed with patient. Pertinent positives mentioned above. Otherwise negative. PHYSICAL EXAM: GENERAL: alert, weak, awake oriented x 3 HEENT: EOMI, Sclera non icteric, moist mucosa NECK: Supple, no JVD, trachea midline LUNGS: Clear breath sounds bilaterally. No wheezes HEART: Regular rate and rhythm. Normal S1 and S2, without murmurs ABD: Abdomen soft, nontender. Bowel sounds present EXT: No clubbing cyanosis or edema NEURO: Alert and oriented to person, follows commands Vital Signs (last 8hr) Date Time Temp Pulse Resp B/P (MAP) Pulse Ox O2 Delivery O2 Flow Rate FiO2 05/23/25 08:00 98.8 88 17 116/58 97 Room Air 05/23/25 07:16 91 18 N/A Room Air 21 LABS: Hematology Labs: Test 05/23/25 03:34 Range/Units White Blood Count 10.3 4.8-10.8 K/uL Red Blood Count 3.59 L 4.00-5.50 MIL/uL Hemoglobin 11.1 L 12.0-16.0 g/dL Hematocrit 32.9 L 36-48 % Mean Corpuscular Volume 91.6 79-99 fL Mean Corpuscular Hemoglobin 30.9 27.0-33.0 pg Mean Corpuscular Hemoglobin Concent 33.7 32.0-36.0 g/dL Red Cell Distribution Width 13.3 11.0-15.5 % Platelet Count 202 130-400 K/uL Mean Platelet Volume 12.5 H 7.5-10.5 fL Immature Granulocyte % (Auto) 0.4 0-1 % Neutrophils (%) (Auto) 60.0 40.0-77.0 % Lymphocytes (%) (Auto) 26.9 21.0-51.0 % Monocytes (%) (Auto) 10.2 3.0-13.0 % Eosinophils (%) (Auto) 2.0 0.0-8.0 % Basophils (%) (Auto) 0.5 0.0-5.0 % Neutrophils # (Auto) 6.1 1.8-7.7 K/uL Lymphocytes # (Auto) 2.8 1.0-4.8 K/uL Monocytes # (Auto) 1.1 H 0.1-1.0 K/uL Eosinophils # (Auto) 0.21 0.00-0.70 K/uL Basophils # (Auto) 0.05 0.00-0.20 K/uL Absolute Immature Granulocyte (auto 0.04 0-1 K/uL Nucleated Red Blood Cells 0.0 0.0-0.19 % Chemistry Labs: Test 05/23/25 03:34 05/22/25 04:18 Range/Units Sodium Level 137 136-145 mmol/L Potassium Level 4.1 3.5-5.1 mmol/L Chloride Level 104 101-111 mmol/L Carbon Dioxide Level 24 21-32 mmol/L Blood Urea Nitrogen 16 7-18 mg/dL Creatinine 0.8 0.5-1.0 mg/dL Glomerular Filtration Rate Calc 75 >90 mL/min Random Glucose 97 70-105 mg/dL Total Calcium 8.5 8.5-10.1 mg/dL Total Bilirubin 0.4 0.2-1.0 mg/dL Direct Bilirubin 0.1 0.0-0.3 mg/dL Aspartate Amino Transf (AST/SGOT) 144 H 10-37 U/L Alanine Aminotransferase (ALT/SGPT) 38 # 12-78 U/L Alkaline Phosphatase 66 50-136 U/L Total Creatine Kinase 548 #*H 21-232 U/L Troponin I High Sensitivity 91815 *H 4-50 ng/L B-Type Natriuretic Peptide 546 H 0-100 pg/mL Total Protein 6.5 6.0-8.3 g/dL Albumin 2.8 L 3.5-5.0 g/dL Thyroid Stimulating Hormone (TSH) 2.42 # 0.36-3.74 uIU/mL Hemoglobin A1c 5.7 4.0-6.0 % Estimated Average Glucose (eAG) 117 70-126 mg/dL Magnesium Level 1.80 1.80-2.40 mg/dL Triglycerides Level 122 30-200 mg/dL Cholesterol Level 198 <200 mg/dL LDL Cholesterol 121 H 0-99 mg/dL HDL Cholesterol 44 35-85 mg/dL DIAGNOSTICS / RADIOLOGY RESULTS: [ ] PLAN : Keep patient in observation in ICU overnight Follow cardiology recommendation [id number] mg p.o. daily Ticagrelor 90 mg p.o. b.i.d. Metoprolol 12.5 mg p.o. daily Atorvastatin 40 mg p.o. at bedtime Follow cardiology recommendations NEURO: Minimize central acting medications as possible. Fall Precautions. Well lighted room through the day and minimize interruptions through the night to prevent acute delirium. PULMONARY: Supplemental 02 as needed Titrate Fio2 to keep Spo2 > or = 90% DuoNebs and CPT as needed IS hourly while awake for pulmonary hygiene Out of bed to chair as tolerated VAP Bundle Vent/BIPAP Settings: [ ] Driving pressure: [ ] P Plat: [ ] Static C: [ ] Static R: [ ] P/F Ratio: [ ] CARDIOVASCULAR: Follow hemodynamics. Titrate vasopressor to keep MAP >65 or systolic blood pressure >95mmHg [id number] mg p.o. daily Ticagrelor 90 mg p.o. b.i.d. Metoprolol 12.5 mg p.o daily DIPS: [ ] LINES: [ ] GI & NUTRITION: Continue nutritional support Aspirations precautions Prokinetic agents and laxatives as needed KIDNEYS & ELECTROLYTES: Strict monitoring of intake and output Daily weights Avoid nephrotoxic agents Monitor electrolytes and replace as needed Goal urine output of 30mL/hr or 0.5mL/kg/hr Urine output: [ ] Fluid Balance: [ ] ENDOCRINE: Maintain blood glucose between 100-180 at all times. Insulin sliding scale for blood glucose management INFECTIOUS DISEASE: Trend temperature. Johnson-culture if febrile. Micro: [ ] Antibiotics: [ ] HEMATOLOGY & COAGULATION: Monitor H&H. Keep Hgb > 7 Transfuse 1 unit of PRBC for Hgb < 7 Transfuse 1 pack of platelets of platelets < 20, 000 Watch for any signs and symptoms of bleeding SKIN: Pressure ulcer prevention per facility protocol Rehab: PT/OT Prophylaxis: GI: Famotidine DVT: eptifibatide Code Status: Full Resuscitation Disposition: Keep in ICU ALKA STOKES PAC May 23, 2025 12:10
[2025-05-23] MEDS: AMOX/CLAV 500/125MG TAB PO SCH (15:40)
--- NOTE | 2025-05-23 16:16 | PN ---
[facility] PROGRESS NOTE Date of Service: May 23, 2025 Time of Service: 16:09 SUBJECTIVE: This is a 79-year-old female with history of hypertension, hyperlipidemia, who presented as a transfer from [facility]. Patient initially presented to the ER in [facility] with chief complaint of severe chest pain with associated radiation to the left shoulder and left arm. Symptoms started close to 10:00 p.m. last night and was progressive in intensity. Patient denies any previous history of cardiac comorbidities. She reports having history of hypertension and has been maintained on low-dose lisinopril as outpatient. She also reports taking Crestor as outpatient. Chest pain improved after receiving nitroglycerin. Patient underwent 12 lead EKG which showed findings of ST- elevation in the anterior leads. Patient was subsequently transferred to [facility] for management of ST-elevation MN. Patient underwent emergent cardiac catheterization by Dr. Ryan which showed findings of 100% thrombotic occlusion of the proximal LAD and patient underwent successful treatment with balloon angioplasty and GRACE placement to the proximal LAD. Patient was also found to have residual CAD involving proximal left circumflex with 72 80% stenosis and 80% stenosis involving the mid RCA. 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 Patient was seen postprocedure, patient denies active chest pain. She is feeling better post PCI. Plan is to obtain CT coronary angiogram tomorrow to investigate the anomalous left circumflex to assess to see if it is from intramuscular versus if it goes around the aorta. Patient will be monitored closely and we will see how patient progresses in the next 48-72 hours. 05/22/2025: Patient was seen and examined with family present in room 228, patient resting comfortably in bed. Patient denying any chest pain or shortness of breath. She remains on telemetry. Tolerating her diet. Cardiology recommended that the patient be continued on dual antiplatelet therapy with [id number] mg p.o. daily, Brilinta 90 mg p.o. b.i.d. they also want to continue metoprolol and atorvastatin. the patient is scheduled to undergo a CT coronary angiogram to assess the anomalous left circumflex and determine its course (intramuscular versus around the aorta). If the LCX goes around the aorta, then per Dr. Ryan, tentatively schedule the patient for staged PCI of the RCA and LCX early next week. Cardiology pending a CTA on Saturday. Benchmark Team has been consulted due to STEMI. Waiting on echo result. 05/23/2025: Patient is seen and evaluated in the room 228. She is not having any symptoms today. Her vital Signs are in the normal range. Labs are normal except for hemoglobin 11.1, creatinine kinase 548, troponin [id number], BNP 546. Se underwent a chest x-ray today and we are awaiting the report. Cardiology started Entresto and furosemide 20 mg IV today followed by Lasix 20 mg p.o. daily. She is scheduled for a CT angiogram on tomorrow. Her urinalysis showed evidence of UTI. So we ordered urine culture. We started her on amoxicillin -clavulanic acid. REVIEW OF SYSTEMS CONSTITUTIONAL: Denies fevers, chills, or night sweats. No unintentional weight loss reported. NEUROLOGICAL: Denies headache, motor weakness, sensory deficit, vertigo/spinning sensation, gait abnormalities, or tremors. ENT: No hearing loss, rhinitis, rhinorrhea, hoarseness, or sore throat. CARDIOVASCULAR: Denies any exertional angina, dyspnea on exertion, orthopnea, paroxysmal nocturnal dyspnea, palpitations PULMONARY: Denies any shortness of breath, cough, phlegm/sputum, hemoptysis, pleuritic chest pain. GASTROINTESTINAL: Denies any type of dysphagia to either liquids or solids. Denies nausea, vomiting, abdominal pain, diarrhea, constipation, or changes in stool consistency or caliber. GENITOURINARY: Denies frequency, urgency, nocturia, hematuria or incontinence. ENDOCRINOLOGIC: Denies polyuria, polydipsia, polyphagia or heat/cold intolerances. DERMATOLOGIC: Denies rashes or pruritus. PHYSICAL EXAM GENERAL APPEARANCE: The patient is awake, alert, and oriented, in no acute cardiopulmonary distress. NEUROLOGICAL: Alert and oriented to person, follows commands, No sensory deficits. HEENT: Face is symmetric. Pupils are equal and reactive. Extraocular movements are intact. NECK: Supple. No thyromegaly. No submental, submandibular, pre-/postauricular, occipital or supraclavicular lymphadenopathy. CHEST: Normal chest expansion. No Telemetry. LUNGS: Absence of any rales, rhonchi or any wheezing. CARDIOVASCULAR: Regular. S1 and S2 normal. No appreciable rubs, murmurs or gallops. ABDOMEN: Soft, nontender, and nondistended. There is no rebound, voluntary guarding, or rigidity. : Deferred. No Mcgill. EXTREMITIES: Non-edematous and not cyanotic. No clubbing. Good capillary refill. SKIN: No skin breakdown. Vital Signs (last 8hr) Date Time Temp Pulse Resp B/P (MAP) Pulse Ox O2 Delivery O2 Flow Rate FiO2 05/23/25 12:00 98.4 99 18 101/79 99 Room Air LABS: Laboratory: Test 05/23/25 03:34 05/22/25 22:15 05/22/25 04:18 Range/Units White Blood Count 10.3 4.8-10.8 K/uL Red Blood Count 3.59 L 4.00-5.50 MIL/uL Hemoglobin 11.1 L 12.0-16.0 g/dL Hematocrit 32.9 L 36-48 % Mean Corpuscular Volume 91.6 79-99 fL Mean Corpuscular Hemoglobin 30.9 27.0-33.0 pg Mean Corpuscular Hemoglobin Concent 33.7 32.0-36.0 g/dL Red Cell Distribution Width 13.3 11.0-15.5 % Platelet Count 202 130-400 K/uL Mean Platelet Volume 12.5 H 7.5-10.5 fL Immature Granulocyte % (Auto) 0.4 0-1 % Neutrophils (%) (Auto) 60.0 40.0-77.0 % Lymphocytes (%) (Auto) 26.9 21.0-51.0 % Monocytes (%) (Auto) 10.2 3.0-13.0 % Eosinophils (%) (Auto) 2.0 0.0-8.0 % Basophils (%) (Auto) 0.5 0.0-5.0 % Neutrophils # (Auto) 6.1 1.8-7.7 K/uL Lymphocytes # (Auto) 2.8 1.0-4.8 K/uL Monocytes # (Auto) 1.1 H 0.1-1.0 K/uL Eosinophils # (Auto) 0.21 0.00-0.70 K/uL Basophils # (Auto) 0.05 0.00-0.20 K/uL Absolute Immature Granulocyte (auto 0.04 0-1 K/uL Nucleated Red Blood Cells 0.0 0.0-0.19 % Sodium Level 137 136-145 mmol/L Potassium Level 4.1 3.5-5.1 mmol/L Chloride Level 104 101-111 mmol/L Carbon Dioxide Level 24 21-32 mmol/L Blood Urea Nitrogen 16 7-18 mg/dL Creatinine 0.8 0.5-1.0 mg/dL Glomerular Filtration Rate Calc 75 >90 mL/min Random Glucose 97 70-105 mg/dL Total Calcium 8.5 8.5-10.1 mg/dL Total Bilirubin 0.4 0.2-1.0 mg/dL Direct Bilirubin 0.1 0.0-0.3 mg/dL Aspartate Amino Transf (AST/SGOT) 144 H 10-37 U/L Alanine Aminotransferase (ALT/SGPT) 38 # 12-78 U/L Alkaline Phosphatase 66 50-136 U/L Total Creatine Kinase 548 #*H 21-232 U/L Troponin I High Sensitivity 93180 *H 4-50 ng/L B-Type Natriuretic Peptide 546 H 0-100 pg/mL Total Protein 6.5 6.0-8.3 g/dL Albumin 2.8 L 3.5-5.0 g/dL Thyroid Stimulating Hormone (TSH) 2.42 # 0.36-3.74 uIU/mL Urine Color LIGHT-YELLOW YELLOW Urine Appearance CLEAR CLEAR Urine pH 5.5 5.0-8.0 Urine Specific [place] 1.020 1.001-1.031 Urine Protein NEGATIVE NEGATIVE mg/dL Urine Glucose (UA) NEGATIVE NEGATIVE mg/dL Urine Ketones NEGATIVE NEGATIVE mg/dL Urine Occult Blood SMALL H NEGATIVE Urine Nitrate NEGATIVE NEGATIVE Urine Bilirubin NEGATIVE NEGATIVE mg/dL Urine Urobilinogen 0.2 0.2-1.0 mg/dL Urine Leukocyte Esterase 500 H NEGATIVE Rickie/uL Urine RBC 2-5 H 0-1 /HPF Urine WBC 51-100 H 0-1 /HPF Urine Squamous Epithelial Cells RARE 0-2 /HPF Urine Bacteria MOD None Seen /HPF Hemoglobin A1c 5.7 4.0-6.0 % Estimated Average Glucose (eAG) 117 70-126 mg/dL Magnesium Level 1.80 1.80-2.40 mg/dL Triglycerides Level 122 30-200 mg/dL Cholesterol Level 198 <200 mg/dL LDL Cholesterol 121 H 0-99 mg/dL HDL Cholesterol 44 35-85 mg/dL Current Medications Medications (Trade) Dose Ordered Sig/Caitlyn Route PRN Reason Start Time Stop Time Status Last Admin Dose Admin Acetaminophen (TYLenol 325MG TAB) 650 mg Q6H PRN PO MILD PAIN (1-3) 05/21/25 15:00 06/20/25 14:59 Amoxicillin/ Clavulanate Potassium (Augmentin 500-125 Tablet) 1 each Q12H PO 05/23/25 16:00 06/02/25 15:59 05/23/25 15:40 1 EACH Aspirin (Aspirin 81mg Ec Tab) 81 mg DAILY PO 05/22/25 09:00 06/21/25 08:59 05/23/25 09:00 81 MG Atorvastatin Calcium (LIPItor 40MG) 40 mg HS PO 05/21/25 21:00 06/20/25 20:59 05/22/25 21:40 40 MG Dextrose (D50w) 50 ml AD PRN IV HYPOGLYCEMIA PROTOCOL 05/21/25 13:30 06/20/25 13:29 UNV Dextrose (D50w) 50 ml AD PRN IV HYPOGLYCEMIA PROTOCOL 05/21/25 14:00 06/20/25 13:59 Enoxaparin Sodium (Lovenox) 40 mg HS SQ 05/22/25 21:00 06/21/25 20:59 05/22/25 21:41 40 MG Eptifibatide 100 ml @ 0 mls/hr PROTOCOL IV 05/21/25 14:00 05/22/25 00:01 DC Famotidine (Pepcid 20mg Tab) 20 mg BID PO 05/22/25 21:00 05/22/25 20:31 DC Famotidine (Pepcid 20mg Tab) 20 mg DAILY PO 05/22/25 09:00 06/21/25 08:59 05/23/25 09:00 20 MG Furosemide (LASix 20MG TAB) 20 mg DAILY PO 05/24/25 09:00 06/23/25 08:59 Glucagon (Glucagon 1mg Kit) 1 mg AD PRN IM HYPOGLYCEMIA PROTOCOL 05/21/25 13:30 06/20/25 13:29 UNV Glucagon (Glucagon 1mg Kit) 1 mg AD PRN IM HYPOGLYCEMIA PROTOCOL 05/21/25 14:00 06/20/25 13:59 Insulin Human Regular (humuLIN R 100 UNIT/ML 3ML) INSULIN SLIDING SCAL... ACHS SQ 05/21/25 16:30 05/21/25 14:29 DC Ipratropium Anthony (AtrovENT UD) 0.5 mg Q6H PRN IH SHORTNESS OF BREATH 05/21/25 14:30 06/20/25 14:29 Isosorbide Mononitrate (Imdur 30mg Sr) 30 mg DAILY PO 05/22/25 09:00 06/21/25 08:59 05/23/25 09:00 30 MG Magnesium Sulfate 50 ml @ 0 mls/hr PROTOCOL IV 05/21/25 14:00 06/20/25 13:59 Metoprolol Succinate (TopROL XL) 12.5 mg DAILY PO 05/22/25 09:00 06/21/25 08:59 05/23/25 09:00 12.5 MG Ondansetron HCl (zoFRAN 4MG INJ) 4 mg Q6H PRN IVP NAUSEA/VOMITING 05/21/25 15:00 06/20/25 14:59 Potassium Chloride 100 ml @ 100 mls/hr AD PRN IV POTASSIUM PROTOCOL 05/21/25 14:00 06/20/25 13:59 Potassium Chloride (K-Dur/Klor-Con 20meq) 20 meq AD PRN PO POTASSIUM PROTOCOL 05/21/25 14:00 06/20/25 13:59 Potassium Chloride (KCl 10% Elixir 20meq/15ml) 20 meq AD PRN PO POTASSIUM PROTOCOL 05/21/25 14:00 06/20/25 13:59 Sacubitril/ Valsartan (Entresto 24 Mg-26 Mg Tablet) 1 each BID PO 05/23/25 11:00 06/22/25 10:59 05/23/25 11:00 1 EACH Sodium Chloride 1,000 ml @ 100 mls/hr Q10H IV 05/21/25 13:30 05/21/25 16:29 DC Ticagrelor (BRILinta) 90 mg BID PO 05/21/25 21:00 06/20/25 20:59 05/23/25 09:00 90 MG DIAGNOSTICS / RADIOLOGY: [ ] ASSESSMENT: ST-elevation MN/ACS, POA Status post PCI with findings of 100% thrombotic occlusion of the proximal LAD status post balloon angioplasty and GRACE placement by Dr. 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 Ryan, 05/21/2025: * Patient will continue with close monitoring in CCU post STEMI/ACS * Continue with post catheterization care per recommendations by Dr. Ryan * Continue with dual antiplatelet therapy with aspirin and Brilinta, patient will be on dual antiplatelet therapy for a minimum of 12 months post ACS * Continue with guideline directed medical therapy with metoprolol succinate 12.5 mg daily, Imdur 30 mg daily, and atorvastatin 40 mg at bedtime * Cardiology added Entresto and Lasix 20 mg IV today followed by Lasix 20 mg p.o. daily. 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 If the LCX goes around the aorta, then per Dr. Ryan, tentatively schedule the patient for staged PCI of the RCA and LCX early next week * Cardiology pending a CTA on tomorrow. Acute hypoxemic respiratory failure, POA * Patient off of nasal cannula now on room air Urinary tract infection,POA * Her urinalysis showed evidence of UTI. * We started her on amoxicillin (day 1). * We sent a urine for culture. GI prophylaxis with famotidine 20 mg DVT prophylaxis with enoxaparin sodium We will repeat a.m. labs Further treatment based on the results ATTESTATION BY PHYSICIAN I have seen and examined the patient. I reviewed the documentation, medical decision making, and treatment plan as noted by the resident physician above. I agree with the findings and plan of care. SHANETL WAHL MD, AKSHAY MD May 23, 2025 16:15
--- NOTE | 2025-05-23 23:47 | HMCIMG ---
EXAM: XR Chest, Portable View in erect position. CLINICAL HISTORY: Evaluation for CHF COMPARISON: CR - CHEST 1VW dated on 05/21/2025 13:27 WAITER WAITRESS FINDINGS: LUNGS: The lungs are clear. No consolidation. PLEURAL SPACES: No pleural effusion or pneumothorax. Moderate sized right paratracheal mass, recommend follow up with CT chest. HEART: Mildly enlarged heart size. BONES: No acute osseous abnormality. IMPRESSION: 1. Mildly enlarged heart size. Moderate sized right paratracheal mass, recommend follow up with CT chest. 2. Image was compared with similar examination done 2 days ago. 05/21/2025 13:27 WAITER WAITRESS /[place]
[2025-05-24] VITALS (12 sets, daily range): BP systolic 107–118; BP diastolic 52–67; PULSE 72–97; RESP 16–18; TEMP 97.9–98.6; O2SAT 93–100
[2025-05-24 03:53] LABS: NUCLEATED RED BLOOD CELLS 0.0 % (0.0-0.19); PLATELET COUNT (AUTO) 216.0 K/uL (130-400); RED BLOOD CELL COUNT(AUTO) 3.98 MIL/uL (4.00-5.50); RED CELL DISTRIBUTION WIDTH 13.2 % (11.0-15.5); WHITE BLOOD COUNT (AUTO) 11.4 K/uL (4.8-10.8)
[2025-05-24 04:06] LABS: ASPARTATE AMINOTRANSFERASE 89.0 U/L (10-37); CREATININE 0.9 mg/dL (0.5-1.0); GLOMERULAR FILTR. RATE CALC 65.0 mL/min (>90); GLUCOSE,RANDOM 112.0 mg/dL (70-105); SODIUM SERUM 137.0 mmol/L (136-145); TOTAL PROTEIN, SERUM 7.4 g/dL (6.0-8.3); UREA NITROGEN, BLOOD 21.0 mg/dL (7-18)
--- NOTE | 2025-05-24 09:16 | PN ---
[facility] PROGRESS NOTE Date Patient Seen: May 24, 2025 Time of Visit: 09:16 Supervising Physician: Dr. Quispe PROBLEM LIST: 1. STEMI 2. STATUS POST LEFT HEART CATHETERIZATION 3. STATUS POST STENT PLACEMENT LAD 4. RCA 70-80% STENOSIS INTERVAL HISTORY: Patient evaluated at bedside today. Currently on room air with good saturations. Patient denies any chest pain and no overnight events have been reported. Patient went for cardiac CTA this morning, currently pending results and following Cardiology recommendations. White count is 11.4 today with a hemoglobin of 12.1. Patient is hemodynamically stable, we will continue with the current medical treatment plan pending further recommendations. Plan: Following cardiology recs, Patient on aspirin, statin, metoprolol and Brilinta Continue with telemetry Pending results of cardiac CTA REVIEW OF SYSTEMS: 12 point ROS reviewed with patient. Pertinent positives mentioned above. Otherwise negative. PHYSICAL EXAM: GENERAL: alert, weak, awake oriented x 3 HEENT: EOMI, Sclera non icteric, moist mucosa NECK: Supple, no JVD, trachea midline LUNGS: Clear breath sounds bilaterally. No wheezes HEART: Regular rate and rhythm. Normal S1 and S2, without murmurs ABD: Abdomen soft, nontender. Bowel sounds present EXT: No clubbing cyanosis or edema NEURO: Alert and oriented to person, follows commands Vital Signs (last 8hr) Date Time Temp Pulse Resp B/P (MAP) Pulse Ox O2 Delivery O2 Flow Rate FiO2 05/24/25 07:44 98.4 88 16 108/61 98 Room Air 05/24/25 06:36 82 18 N/A Room Air 21 05/24/25 04:00 98.4 90 18 118/58 97 Room Air LABS: Hematology Labs: Test 05/24/25 03:35 05/23/25 03:34 Range/Units White Blood Count 11.4 H 4.8-10.8 K/uL Red Blood Count 3.98 L 4.00-5.50 MIL/uL Hemoglobin 12.1 12.0-16.0 g/dL Hematocrit 36.9 36-48 % Mean Corpuscular Volume 92.7 79-99 fL Mean Corpuscular Hemoglobin 30.4 27.0-33.0 pg Mean Corpuscular Hemoglobin Concent 32.8 32.0-36.0 g/dL Red Cell Distribution Width 13.2 11.0-15.5 % Platelet Count 216 130-400 K/uL Mean Platelet Volume 12.2 H 7.5-10.5 fL Nucleated Red Blood Cells 0.0 0.0-0.19 % Immature Granulocyte % (Auto) 0.4 0-1 % Neutrophils (%) (Auto) 60.0 40.0-77.0 % Lymphocytes (%) (Auto) 26.9 21.0-51.0 % Monocytes (%) (Auto) 10.2 3.0-13.0 % Eosinophils (%) (Auto) 2.0 0.0-8.0 % Basophils (%) (Auto) 0.5 0.0-5.0 % Neutrophils # (Auto) 6.1 1.8-7.7 K/uL Lymphocytes # (Auto) 2.8 1.0-4.8 K/uL Monocytes # (Auto) 1.1 H 0.1-1.0 K/uL Eosinophils # (Auto) 0.21 0.00-0.70 K/uL Basophils # (Auto) 0.05 0.00-0.20 K/uL Absolute Immature Granulocyte (auto 0.04 0-1 K/uL Chemistry Labs: Test 05/24/25 03:35 05/23/25 03:34 Range/Units Sodium Level 137 136-145 mmol/L Potassium Level 4.3 3.5-5.1 mmol/L Chloride Level 102 101-111 mmol/L Carbon Dioxide Level 25 21-32 mmol/L Blood Urea Nitrogen 21 H 7-18 mg/dL Creatinine 0.9 0.5-1.0 mg/dL Glomerular Filtration Rate Calc 65 >90 mL/min Random Glucose 112 H 70-105 mg/dL Total Calcium 9.1 8.5-10.1 mg/dL Total Bilirubin 0.4 0.2-1.0 mg/dL Direct Bilirubin 0.1 0.0-0.3 mg/dL Aspartate Amino Transf (AST/SGOT) 89 H 10-37 U/L Alanine Aminotransferase (ALT/SGPT) 34 12-78 U/L Alkaline Phosphatase 78 50-136 U/L Troponin I High Sensitivity 65319 *H 4-50 ng/L B-Type Natriuretic Peptide 868 H 0-100 pg/mL Total Protein 7.4 6.0-8.3 g/dL Albumin 3.2 L 3.5-5.0 g/dL Total Creatine Kinase 548 #*H 21-232 U/L Thyroid Stimulating Hormone (TSH) 2.42 # 0.36-3.74 uIU/mL DIAGNOSTICS / RADIOLOGY RESULTS: [ ] PLAN NEURO: Minimize central acting medications as possible. Maintain fall precautions, adequate lighting during the day PULMONARY: Supplemental 02 as needed. Maintain aspiration precautions at all times CARDIOVASCULAR: Follow hemodynamics. Vital signs per facility protocol GI & NUTRITION: Continue with nutritional support. Continue stool softeners and laxatives as needed. KIDNEYS & ELECTROLYTES: Strict monitoring of intake, output and overall fluid balance. Avoid nephrotoxic medications to the extent possible. Medications to be dosed according to renal function. Monitor electrolytes and replace as needed ENDOCRINE: Maintain blood glucose between 100-180 at all times. Hypoglycemia protocol in place INFECTIOUS DISEASE: Trend temperature, WBC and procalcitonin level Follow cultures, deescalate antibiotics as soon as possible. Panculture if new onset fever ONCOLOGY/HEMATOLOGY/COAGULATION: Monitor for s/s of bleeding Monitor hemoglobin, coagulation studies as needed SKIN: Pressure ulcer prevention per facility protocol Specialty mattress ORTHO/REHAB: Continue PT/OT Prophylaxis: Continue GI and DVT prophylaxis Code Status: Full Resuscitation Disposition: JORGE PETERSON PAC May 24, 2025 09:16
[2025-05-24] MEDS ORDERED: IOHEXOL 350 MG/ML 100ML INFUS..BTL IV ONE (10:09)
--- NOTE | 2025-05-24 13:12 | PN ---
Cardiology Progress Note Date of Service: 05/24/2025 Attending Executive Personal Assistant: Dr. 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 The patient denies any active complaints including chest pain, chest pressure, palpitations, or shortness of breath. The CCTA identified that she is a candidate for PCI of the residual CAD in the LCx and RCA. As per the nurse, there were no overnight events. Vitals/Labs Vital Signs Date Time Temp Pulse Resp B/P (MAP) Pulse Ox O2 Delivery O2 Flow Rate FiO2 05/24/25 11:57 97.9 72 16 114/57 100 Room Air 05/24/25 06:36 21 05/23/25 20:00 0 General: Awake and alert. No acute distress. Chronically ill appearing. HEENT: Normocephalic, atraumatic. EOMI. Oral mucosa was moist. Neck: No masses, JVD, or carotid bruits. Lungs: No respiratory distress. SCM. Bilateral air entry. Diminished breath sounds noted to the bilateral lower lung john. Cardio: Regular rate. Normal S1 and S2, +S4. No murmurs, rubs, or gallops. Abdomen: Soft, nontender, nondistended. No organomegaly. Normoactive bowel sounds x 4 quadrants. Extremities. No edema, clubbing, or cyanosis. +2 pulses noted throughout. Neuro: Cranial nerves II through XII are grossly intact. No focal deficits identified. 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 ACS-STEMI: Culprit lesion - 100% thrombotic occlusion in the proximal LAD s/p successful PCI with PTCA and GRACE placement (XS 3.0 x 23 mm) in the proximal LAD done on 05/21/2025 -Residual CAD (70-80% stenosis in the proximal LCX (anomalous) and 80% stenosis in the mid RCA) identified on [facility] done on 05/21/2025 -The CCTA identified that the CAD within the LCx is amendable to percutaneous intervention. -As a result, we will refer a patient for a staged PCI of the LCx and RCA. The risks and benefits of the procedure have been explained to the patient and she wishes to proceed. -We will tentatively schedule the procedure for tomorrow to be done by Dr. Zen Ryan. -The patient can have a CLD for breakfast, but should be kept NPO after that. -In the meantime, she will continue on goal directed ACS treatment which includes aspirin 81 mg daily, ticagrelor 90 mg BID, metoprolol succinate 12.5 mg daily, isosorbide mononitrate ER 30 mg daily, and atorvastatin 40 mg QHS. The patient will remain on DAPT for a minimum of 1 year as per ACS guidelines. 2. 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 -Continue metoprolol succinate 12.5 mg daily and Entresto 24/26 mg BID. -Please record strict I/O's, daily weights, and restrict fluids to less than 2.0L/day This case was seen and discussed with my Supervising Physician, Dr. Zen Ryan, and the above mentioned plan was formulated and agreed upon. -Progress Note written by Jo Ann Rodriguez, MSN, INFORMATION CLERK [employer], AGACNP-JO ANN GLEASON May 24, 2025 13:12
--- NOTE | 2025-05-24 15:57 | PN ---
[facility] PROGRESS NOTE Date of Service: May 24, 2025 Time of Service: 15:51 SUBJECTIVE: This is a 79-year-old female with history of hypertension, hyperlipidemia, who presented as a transfer from [facility]. Patient initially presented to the ER in [facility] with chief complaint of severe chest pain with associated radiation to the left shoulder and left arm. Symptoms started close to 10:00 p.m. last night and was progressive in intensity. Patient denies any previous history of cardiac comorbidities. She reports having history of hypertension and has been maintained on low-dose lisinopril as outpatient. She also reports taking Crestor as outpatient. Chest pain improved after receiving nitroglycerin. Patient underwent 12 lead EKG which showed findings of ST- elevation in the anterior leads. Patient was subsequently transferred to [facility] for management of ST-elevation [place]. Patient underwent emergent cardiac catheterization by Dr. Ryan which showed findings of 100% thrombotic occlusion of the proximal LAD and patient underwent successful treatment with balloon angioplasty and GRACE placement to the proximal LAD. Patient was also found to have residual CAD involving proximal left circumflex with 72 80% stenosis and 80% stenosis involving the mid RCA. 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 Patient was seen postprocedure, patient denies active chest pain. She is feeling better post PCI. Plan is to obtain CT coronary angiogram tomorrow to investigate the anomalous left circumflex to assess to see if it is from intramuscular versus if it goes around the aorta. Patient will be monitored closely and we will see how patient progresses in the next 48-72 hours. 05/22/2025: Patient was seen and examined with family present in room 228, patient resting comfortably in bed. Patient denying any chest pain or shortness of breath. She remains on telemetry. Tolerating her diet. Cardiology recommended that the patient be continued on dual antiplatelet therapy with [id number] mg p.o. daily, Brilinta 90 mg p.o. b.i.d. they also want to continue metoprolol and atorvastatin. the patient is scheduled to undergo a CT coronary angiogram to assess the anomalous left circumflex and determine its course (intramuscular versus around the aorta). If the LCX goes around the aorta, then per Dr. Ryan, tentatively schedule the patient for staged PCI of the RCA and LCX early next week. Cardiology pending a CTA on Saturday. [facility]mark Team has been consulted due to STEMI. Waiting on echo result. 05/23/2025: Patient is seen and evaluated in the room 228. She is not having any symptoms today. Her vital Signs are in the normal range. Labs are normal except for hemoglobin 11.1, creatinine kinase 548, troponin [id number], BNP 546. Se underwent a chest x-ray today and we are awaiting the report. Cardiology started Entresto and furosemide 20 mg IV today followed by Lasix 20 mg p.o. daily. She is scheduled for a CT angiogram on tomorrow. Her urinalysis showed evidence of UTI. So we ordered urine culture. We started her on amoxicillin -clavulanic acid. 05/24/2025: She is evaluated bedside this morning. She is AAO x3. She had some chest discomfort because of anxiety 3:00 a.m. but she did not have any symptoms this morning. Hemodynamically stable remarkable for WBC 11.4, urine culture rev ealed Gram-negative bacilli with significant bacteriuria. Chest x-ray revealed with moderate sized right paratracheal mass. Mildly enlarged heart size with moderate size right paratracheal mass. She is pending CTA today to delineate the anatomy of LCX. We will set up pulmonology consult for the mass. We have started her on Rocephin1 g daily for the UTI. Currently on furosemide 20 mg, Entresto, metoprolol succinate 12.5 mg, aspirin 81, [id number], [id number], isosorbide mononitrate, [id number] , Lovenox 40 for DVT prophylaxis. Cardiology on the board. Rest of the plan as discussed with the. REVIEW OF SYSTEMS CONSTITUTIONAL: Denies fevers, chills, or night sweats. No unintentional weight loss reported. NEUROLOGICAL: Denies headache, motor weakness, sensory deficit, vertigo/spinning sensation, gait abnormalities, or tremors. ENT: No hearing loss, rhinitis, rhinorrhea, hoarseness, or sore throat. CARDIOVASCULAR: Denies any exertional angina, dyspnea on exertion, orthopnea, paroxysmal nocturnal dyspnea, palpitations PULMONARY: Denies any shortness of breath, cough, phlegm/sputum, hemoptysis, pleuritic chest pain. GASTROINTESTINAL: Denies any type of dysphagia to either liquids or solids. Denies nausea, vomiting, abdominal pain, diarrhea, constipation, or changes in stool consistency or caliber. GENITOURINARY: Denies frequency, urgency, nocturia, hematuria or incontinence. ENDOCRINOLOGIC: Denies polyuria, polydipsia, polyphagia or heat/cold intolerances. DERMATOLOGIC: Denies rashes or pruritus. PHYSICAL EXAM GENERAL APPEARANCE: The patient is awake, alert, and oriented, in no acute cardiopulmonary distress. NEUROLOGICAL: Alert and oriented to person, follows commands, No sensory deficits. HEENT: Face is symmetric. Pupils are equal and reactive. Extraocular movements are intact. NECK: Supple. No thyromegaly. No submental, submandibular, pre-/postauricular, occipital or supraclavicular lymphadenopathy. CHEST: Normal chest expansion. No Telemetry. LUNGS: Absence of any rales, rhonchi or any wheezing. CARDIOVASCULAR: Regular. S1 and S2 normal. No appreciable rubs, murmurs or gallops. ABDOMEN: Soft, nontender, and nondistended. There is no rebound, voluntary guarding, or rigidity. : Deferred. No Mcgill. EXTREMITIES: Non-edematous and not cyanotic. No clubbing. Good capillary refill. SKIN: No skin breakdown. Vital Signs (last 8hr) Date Time Temp Pulse Resp B/P (MAP) Pulse Ox O2 Delivery O2 Flow Rate FiO2 05/24/25 11:57 97.9 72 16 114/57 100 Room Air 05/24/25 08:00 100 Room Air* 0 21 LABS: Laboratory: Test 05/24/25 03:35 05/23/25 03:34 05/22/25 22:15 Range/Units White Blood Count 11.4 H 4.8-10.8 K/uL Red Blood Count 3.98 L 4.00-5.50 MIL/uL Hemoglobin 12.1 12.0-16.0 g/dL Hematocrit 36.9 36-48 % Mean Corpuscular Volume 92.7 79-99 fL Mean Corpuscular Hemoglobin 30.4 27.0-33.0 pg Mean Corpuscular Hemoglobin Concent 32.8 32.0-36.0 g/dL Red Cell Distribution Width 13.2 11.0-15.5 % Platelet Count 216 130-400 K/uL Mean Platelet Volume 12.2 H 7.5-10.5 fL Nucleated Red Blood Cells 0.0 0.0-0.19 % Sodium Level 137 136-145 mmol/L Potassium Level 4.3 3.5-5.1 mmol/L Chloride Level 102 101-111 mmol/L Carbon Dioxide Level 25 21-32 mmol/L Blood Urea Nitrogen 21 H 7-18 mg/dL Creatinine 0.9 0.5-1.0 mg/dL Glomerular Filtration Rate Calc 65 >90 mL/min Random Glucose 112 H 70-105 mg/dL Total Calcium 9.1 8.5-10.1 mg/dL Total Bilirubin 0.4 0.2-1.0 mg/dL Direct Bilirubin 0.1 0.0-0.3 mg/dL Aspartate Amino Transf (AST/SGOT) 89 H 10-37 U/L Alanine Aminotransferase (ALT/SGPT) 34 12-78 U/L Alkaline Phosphatase 78 50-136 U/L Troponin I High Sensitivity 16960 *H 4-50 ng/L B-Type Natriuretic Peptide 868 H 0-100 pg/mL Total Protein 7.4 6.0-8.3 g/dL Albumin 3.2 L 3.5-5.0 g/dL Immature Granulocyte % (Auto) 0.4 0-1 % Neutrophils (%) (Auto) 60.0 40.0-77.0 % Lymphocytes (%) (Auto) 26.9 21.0-51.0 % Monocytes (%) (Auto) 10.2 3.0-13.0 % Eosinophils (%) (Auto) 2.0 0.0-8.0 % Basophils (%) (Auto) 0.5 0.0-5.0 % Neutrophils # (Auto) 6.1 1.8-7.7 K/uL Lymphocytes # (Auto) 2.8 1.0-4.8 K/uL Monocytes # (Auto) 1.1 H 0.1-1.0 K/uL Eosinophils # (Auto) 0.21 0.00-0.70 K/uL Basophils # (Auto) 0.05 0.00-0.20 K/uL Absolute Immature Granulocyte (auto 0.04 0-1 K/uL Total Creatine Kinase 548 #*H 21-232 U/L Thyroid Stimulating Hormone (TSH) 2.42 # 0.36-3.74 uIU/mL Urine Color LIGHT-YELLOW YELLOW Urine Appearance CLEAR CLEAR Urine pH 5.5 5.0-8.0 Urine Specific [place] 1.020 1.001-1.031 Urine Protein NEGATIVE NEGATIVE mg/dL Urine Glucose (UA) NEGATIVE NEGATIVE mg/dL Urine Ketones NEGATIVE NEGATIVE mg/dL Urine Occult Blood SMALL H NEGATIVE Urine Nitrate NEGATIVE NEGATIVE Urine Bilirubin NEGATIVE NEGATIVE mg/dL Urine Urobilinogen 0.2 0.2-1.0 mg/dL Urine Leukocyte Esterase 500 H NEGATIVE Rickie/uL Urine RBC 2-5 H 0-1 /HPF Urine WBC 51-100 H 0-1 /HPF Urine Squamous Epithelial Cells RARE 0-2 /HPF Urine Bacteria MOD None Seen /HPF Current Medications Medications (Trade) Dose Ordered Sig/Caitlyn Route PRN Reason Start Time Stop Time Status Last Admin Dose Admin Acetaminophen (TYLenol 325MG TAB) 650 mg Q6H PRN PO MILD PAIN (1-3) 05/21/25 15:00 06/20/25 14:59 Amoxicillin/ Clavulanate Potassium (Augmentin 500-125 Tablet) 1 each Q12H PO 05/23/25 16:00 06/02/25 15:59 05/24/25 14:51 1 EACH Aspirin (Aspirin 81mg Ec Tab) 81 mg DAILY PO 05/22/25 09:00 06/21/25 08:59 05/24/25 14:50 81 MG Atorvastatin Calcium (LIPItor 40MG) 40 mg HS PO 05/21/25 21:00 06/20/25 20:59 05/23/25 20:20 40 MG Dextrose (D50w) 50 ml AD PRN IV HYPOGLYCEMIA PROTOCOL 05/21/25 13:30 06/20/25 13:29 UNV Dextrose (D50w) 50 ml AD PRN IV HYPOGLYCEMIA PROTOCOL 05/21/25 14:00 06/20/25 13:59 Enoxaparin Sodium (Lovenox) 40 mg HS SQ 05/22/25 21:00 06/21/25 20:59 05/23/25 20:21 40 MG Eptifibatide 100 ml @ 0 mls/hr PROTOCOL IV 05/21/25 14:00 05/22/25 00:01 DC Famotidine (Pepcid 20mg Tab) 20 mg BID PO 05/22/25 21:00 05/22/25 20:31 DC Famotidine (Pepcid 20mg Tab) 20 mg DAILY PO 05/22/25 09:00 06/21/25 08:59 05/24/25 14:51 20 MG Furosemide (LASix 20MG TAB) 20 mg DAILY PO 05/24/25 09:00 05/24/25 10:33 DC Furosemide (LASix 20MG VIAL) 20 mg BIDMEALS IV 05/24/25 10:30 06/23/25 10:29 Glucagon (Glucagon 1mg Kit) 1 mg AD PRN IM HYPOGLYCEMIA PROTOCOL 05/21/25 13:30 06/20/25 13:29 UNV Glucagon (Glucagon 1mg Kit) 1 mg AD PRN IM HYPOGLYCEMIA PROTOCOL 05/21/25 14:00 06/20/25 13:59 Insulin Human Regular (humuLIN R 100 UNIT/ML 3ML) INSULIN SLIDING SCAL... ACHS SQ 05/21/25 16:30 05/21/25 14:29 DC Ipratropium [place] (AtrovENT UD) 0.5 mg Q6H PRN IH SHORTNESS OF BREATH 05/21/25 14:30 06/20/25 14:29 Isosorbide Mononitrate (Imdur 30mg Sr) 30 mg DAILY PO 05/22/25 09:00 06/21/25 08:59 05/24/25 14:51 30 MG Magnesium Sulfate 50 ml @ 0 mls/hr PROTOCOL IV 05/21/25 14:00 06/20/25 13:59 Metoprolol Succinate (TopROL XL) 12.5 mg DAILY PO 05/22/25 09:00 06/21/25 08:59 05/24/25 14:51 12.5 MG Ondansetron HCl (zoFRAN 4MG INJ) 4 mg Q6H PRN IVP NAUSEA/VOMITING 05/21/25 15:00 06/20/25 14:59 Potassium Chloride 100 ml @ 100 mls/hr AD PRN IV POTASSIUM PROTOCOL 05/21/25 14:00 06/20/25 13:59 Potassium Chloride (K-Dur/Klor-Con 20meq) 20 meq AD PRN PO POTASSIUM PROTOCOL 05/21/25 14:00 06/20/25 13:59 Potassium Chloride (KCl 10% Elixir 20meq/15ml) 20 meq AD PRN PO POTASSIUM PROTOCOL 05/21/25 14:00 06/20/25 13:59 Sacubitril/ Valsartan (Entresto 24 Mg-26 Mg Tablet) 1 each BID PO 05/23/25 11:00 06/22/25 10:59 05/23/25 20:20 1 EACH Sodium Chloride 1,000 ml @ 100 mls/hr Q10H IV 05/21/25 13:30 05/21/25 16:29 DC Ticagrelor (BRILinta) 90 mg BID PO 05/21/25 21:00 06/20/25 20:59 05/23/25 20:20 90 MG DIAGNOSTICS / RADIOLOGY: PATIENT: RASHMI VELEZ MR#: [id number] : 1945 SEX: F AGE: 79 LOCATION: 2DH ORDER [id number] STATUS: ADM IN REPORT#: [id number] SERVICE [id number] REASON: evaluate for CHF ORDERING PHYSICIAN: HERB CASILLAS PROCEDURE: CXR1VW - CHEST 1VW ADDENDUM REPORT ADDENDUM: Results were shared by telephone at 01:42 AM EST on 05-24-2025 and acknowledged by the Patient's Nurse Mr. Dimitry Bales. /[place] EXAM: XR Chest, Portable View in erect position. 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 No consolidation. PLEURAL SPACES: No pleural effusion or pneumothorax. Moderate sized right paratracheal mass, recommend follow up with CT chest. HEART: Mildly enlarged heart size. BONES: No acute osseous abnormality. IMPRESSION: 1. Mildly enlarged heart size. Moderate sized right paratracheal mass, recommend follow up with CT chest. 2. Image was compared with similar examination done 2 days ago. 05/21/2025 13:27 WATER TANKER DRIVER /[place] DICTATED BY: NATALIE HOPE MD DATE: 12/08/25 0145 ELECTRONICALLY SIGNED BY: DATE: EXAM: XR Chest, Portable View in erect position. 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 No consolidation. PLEURAL SPACES: No pleural effusion or pneumothorax. Moderate sized right paratracheal mass, recommend follow up with CT chest. HEART: Mildly enlarged heart size. BONES: No acute osseous abnormality. IMPRESSION: 1. Mildly enlarged heart size. Moderate sized right paratracheal mass, recommend follow up with CT chest. 2. Image was compared with similar examination done 2 days ago. 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 Ryan, 05/21/2025: * Patient will continue with close monitoring in CCU post STEMI/ACS * Continue with post catheterization care per recommendations by Dr. 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 If the LCX goes around the aorta, then per Dr. Ryan, tentatively schedule the patient for staged PCI of the RCA and LCX early next week * CTA today. Acute hypoxemic respiratory failure, POA (resolved) * Patient off of nasal cannula now on room air Urinary tract infection,POA * Her urinalysis showed evidence of UTI. * We started her on Rocephin 1 g daily (day1) * We sent a urine for culture. Paratracheal mass POA * Chest x-ray revealed moderate-sized right paratracheal mass. * She may need further imaging did not get the mass. She is pending CTA today * We will consider pulmonology on board GI prophylaxis with famotidine 20 mg DVT prophylaxis with enoxaparin sodium We will repeat a.m. labs Further treatment based on the results ATTESTATION BY PHYSICIAN I have seen and examined the patient. I reviewed the documentation, medical decision making, and treatment plan as noted by the resident physician above. I agree with the findings and plan of care. SHANTEL WAHL MD, SUNIL MD May 24, 2025 15:57
--- NOTE | 2025-05-24 18:50 | CARDIOLOGY ---
RAD REPORT: CORNARY CT ANGIO RADIOLOGY REPORT: CORONARY CT ANGIOGRAPHY DATE: May 24, 2025 QUALITY: Excellent CLINICAL HISTORY AND INDICATION: [ Anamolous LCx ] TECHNIQUE: After obtaining a preliminary ballistics expert image, contrast imaging performed on an Aquillon [id number] scanner. A dedicated, limited window, coronary imaging protocol was used, with single breath-hold, retrospective ECG gating, and automated arrhythmia rejection. 100 cc of low osmolar contrast agent: Omnipaque 350 was delivered via a 18-gauge IV catheter in the right antecubital fossa, using a power injector and followed by 60 cc of normal saline bolus as a chaser. Collimated images were reformatted at 0.5 mm intervals, and sent to an offline independent workstation for interpretation, using 3D anatomic reconstructions: Curved multiplanar reconstructions, maximum intensity projections, and multiplanar imaging. 10 mg IV metoprolol was administered prior to scanning. 0.8 mg SL nitroglycerin was given. CORONARY ARTERY DESCRIPTIONS: The LCx arises from the same ostia as the RCA off the right coronary cusp and courses retrograde to the aorta. Left anterior descending coronary artery: Normal caliber vessel and gives rise to diagonal and septal branches. There is a patent drug eluting stent in the proximal LAD. Left circumflex coronary artery: Normal caliber, nondominant and gives rise to a large OM branch. No stenosis. Right coronary artery: Large, dominant vessel giving rise to the PL and PDA branches. There is mixed plaque in the proximal RCA with 50-60% stenosis and 60- 70% stenosis in the mid RCA. Thoracic Aorta: Normal diameter. Sabrina Kelley MD Cardiovascular Disease [facility] SABRINA KELLEY MD May 24, 2025 18:50
[2025-05-25] VITALS (9 sets, daily range): BP systolic 100–125; BP diastolic 55–75; PULSE 81–102; RESP 16–18; TEMP 97.8–98.8; O2SAT 96–98
[2025-05-25 04:12] LABS: IMMATURE GRANULOCYTE ABSOLUTE 0.04 K/uL (0-1); NUCLEATED RED BLOOD CELLS 0.0 % (0.0-0.19); PLATELET COUNT (AUTO) 223 K/uL (130-400); RED BLOOD CELL COUNT(AUTO) 3.78 MIL/uL (4.00-5.50); RED CELL DISTRIBUTION WIDTH 13.2 % (11.0-15.5); WHITE BLOOD COUNT (AUTO) 10.5 K/uL (4.8-10.8)
[2025-05-25 04:29] LABS: CREATININE 1.0 mg/dL (0.5-1.0); GLOMERULAR FILTR. RATE CALC 57.0 mL/min (>90); GLUCOSE,RANDOM 108.0 mg/dL (70-105); SODIUM SERUM 136.0 mmol/L (136-145); UREA NITROGEN, BLOOD 25.0 mg/dL (7-18)
[2025-05-25] MEDS: MAGNESIUM 2GM PREMIX 50ML 50 ML IV SCH (07:34)
[2025-05-25] MEDS: PoTASSium chloRIDE 20MEQ ER 20 MEQ ERTAB PO PRN (07:35)
[2025-05-25 12:19] LABS: INR 1.03 (0.85-1.15)
--- NOTE | 2025-05-25 14:54 | PN ---
Cardiology Progress Note Date of Service: 05/25/2025 Attending Director Of Institutional Giving: Dr. 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 The patient denies any active complaints including chest pain, chest pressure, palpitations, or shortness of breath. As per the nurse, there were no overnight events. Vitals/Labs Vital Signs Date Time Temp Pulse Resp B/P (MAP) Pulse Ox O2 Delivery O2 Flow Rate FiO2 05/25/25 11:52 97.9 81 18 121/56 97 Room Air 05/25/25 08:05 21 05/25/25 08:00 0 General: Awake and alert. No acute distress. Chronically ill appearing. HEENT: Normocephalic, atraumatic. EOMI. Oral mucosa was moist. Neck: No masses, JVD, or carotid bruits. Lungs: No respiratory distress. SCM. Bilateral air entry. Diminished breath sounds noted to the bilateral lower lung john. Cardio: Regular rate. Normal S1 and S2, +S4. No murmurs, rubs, or gallops. Abdomen: Soft, nontender, nondistended. No organomegaly. Normoactive bowel sounds x 4 quadrants. Extremities. No edema, clubbing, or cyanosis. +2 pulses noted throughout. Neuro: Cranial nerves II through XII are grossly intact. No focal deficits identified. 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 ACS-STEMI: Culprit lesion - 100% thrombotic occlusion in the proximal LAD s/p successful PCI with PTCA and GRACE placement (XS 3.0 x 23 mm) in the proximal LAD done on 05/21/2025 -Residual CAD (70-80% stenosis in the proximal LCX (anomalous) and 80% stenosis in the mid RCA) identified on C done on 05/21/2025 -The CCTA identified that the CAD within the LCx is amendable to percutaneous intervention. -As a result, we will refer a patient for a staged PCI of the LCx and RCA. The risks and benefits of the procedure have been explained to the patient and she wishes to proceed. -We were tentatively going to perform the PCI of the patient's residual today, but unfortunately due to lack of availability, the procedure will have to be deferred, and after speaking with the patient, the decision was made to address the residual CAD as an outpatient. -In the meantime, she will continue on goal directed ACS treatment which includes aspirin 81 mg daily, ticagrelor 90 mg BID, metoprolol succinate 25 mg daily, isosorbide mononitrate ER 30 mg daily, and atorvastatin 40 mg QHS. The patient will remain on DAPT for a minimum of 1 year as per ACS guidelines. 2. 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 -Continue metoprolol succinate 25 mg daily and Entresto 24/26 mg BID. -Please record strict I/O's, daily weights, and restrict fluids to less than 2.0L/day We anticipate that the patient can be discharged in the AM and should follow up next week ([place] office) with Cardiology, Dr. Zen Ryan. This case was seen and discussed with my Supervising Physician, Dr. Zen Ryan, and the above mentioned plan was formulated and agreed upon. -Progress Note written by Jo Ann Rivera, MSN, [employer] SM[employer] HELPER, AGAP-BC JO ANN RIVERA [facility] May 25, 2025 14:54
--- NOTE | 2025-05-25 17:04 | PN ---
[facility] PROGRESS NOTE Date of Service: May 25, 2025 Time of Service: 16:50 SUBJECTIVE: This is a 79-year-old female with history of hypertension, hyperlipidemia, who presented as a transfer from [facility]. Patient initially presented to the ER in [facility] with chief complaint of severe chest pain with associated radiation to the left shoulder and left arm. Symptoms started close to 10:00 p.m. last night and was progressive in intensity. Patient denies any previous history of cardiac comorbidities. She reports having history of hypertension and has been maintained on low-dose lisinopril as outpatient. She also reports taking Crestor as outpatient. Chest pain improved after receiving nitroglycerin. Patient underwent 12 lead EKG which showed findings of ST- elevation in the anterior leads. Patient was subsequently transferred to [facility] for management of ST-elevation IL. Patient underwent emergent cardiac catheterization by Dr. Ryan which showed findings of 100% thrombotic occlusion of the proximal LAD and patient underwent successful treatment with balloon angioplasty and GRACE placement to the proximal LAD. Patient was also found to have residual CAD involving proximal left circumflex with 72 80% stenosis and 80% stenosis involving the mid RCA. 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 Patient was seen postprocedure, patient denies active chest pain. She is feeling better post PCI. Plan is to obtain CT coronary angiogram tomorrow to investigate the anomalous left circumflex to assess to see if it is from intramuscular versus if it goes around the aorta. Patient will be monitored closely and we will see how patient progresses in the next 48-72 hours. 05/22/2025: Patient was seen and examined with family present in room 228, patient resting comfortably in bed. Patient denying any chest pain or shortness of breath. She remains on telemetry. Tolerating her diet. Cardiology recommended that the patient be continued on dual antiplatelet therapy with ybhmnyj90 mg p.o. daily, Brilinta 90 mg p.o. b.i.d. they also want to continue metoprolol and atorvastatin. the patient is scheduled to undergo a CT coronary angiogram to assess the anomalous left circumflex and determine its course (intramuscular versus around the aorta). If the LCX goes around the aorta, then per Dr. Ryan, tentatively schedule the patient for staged PCI of the RCA and LCX early next week. Cardiology pending a CTA on Saturday. Benchmark Team has been consulted due to STEMI. Waiting on echo result. 05/23/2025: Patient is seen and evaluated in the room 228. She is not having any symptoms today. Her vital Signs are in the normal range. Labs are normal except for hemoglobin 11.1, creatinine kinase 548, troponin [id number], BNP 546. Se underwent a chest x-ray today and we are awaiting the report. Cardiology started Entresto and furosemide 20 mg IV today followed by Lasix 20 mg p.o. daily. She is scheduled for a CT angiogram on tomorrow. Her urinalysis showed evidence of UTI. So we ordered urine culture. We started her on amoxicillin -clavulanic acid. 05/24/2025: She is evaluated bedside this morning. She is AAO x3. She had some chest discomfort because of anxiety 3:00 a.m. but she did not have any symptoms this morning. Hemodynamically stable remarkable for WBC 11.4, urine culture revealed Gram-negative bacilli with significant bacteriuria. Chest x-ray revealed with moderate sized right paratracheal mass. Mildly enlarged heart size with moderate size right paratracheal mass. She is pending CTA today to delineate the anatomy of LCX. We will set up pulmonology consult for the mass. We have started her on Rocephin1 g daily for the UTI. Currently on furosemide 20 mg, Entresto, metoprolol succinate 12.5 mg, aspirin 81, [id number], [id number], isosorbide mononitrate, [id number] , Lovenox 40 for DVT prophylaxis. Cardiology on the board. Rest of the plan as discussed with the. 05/25/2025: She is evaluated at the bedside this morning. She is AAO x3. No overnight event. She did not complain of pain or shortness of breath. Labs remarkable for WBC count 10.5, hemoglobin 11.5, creatinine 1. 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 She will tentatively goal with a PCI for the residual disease on RCA and LCX on this admission. She continues on furosemide 20 mg, Entresto, metoprolol succinate 12.5 mg, upnrarj34 mg, ticagrelor 90 mg, atorvastatin 40 mg, isosorbide mononitrate, famotidine 20 mg, Lovenox 40 mg for DVT prophylaxis. Cardiology On board. Rest of the plan as discussed below. REVIEW OF SYSTEMS CONSTITUTIONAL: Denies fevers, chills, or night sweats. No unintentional weight loss reported. NEUROLOGICAL: Denies headache, motor weakness, sensory deficit, vertigo/spinning sensation, gait abnormalities, or tremors. ENT: No hearing loss, rhinitis, rhinorrhea, hoarseness, or sore throat. CARDIOVASCULAR: Denies any exertional angina, dyspnea on exertion, orthopnea, paroxysmal nocturnal dyspnea, palpitations PULMONARY: Denies any shortness of breath, cough, phlegm/sputum, hemoptysis, pleuritic chest pain. GASTROINTESTINAL: Denies any type of dysphagia to either liquids or solids. Denies nausea, vomiting, abdominal pain, diarrhea, constipation, or changes in stool consistency or caliber. GENITOURINARY: Denies frequency, urgency, nocturia, hematuria or incontinence. ENDOCRINOLOGIC: Denies polyuria, polydipsia, polyphagia or heat/cold intolerances. DERMATOLOGIC: Denies rashes or pruritus. PHYSICAL EXAM GENERAL APPEARANCE: The patient is awake, alert, and oriented, in no acute cardiopulmonary distress. NEUROLOGICAL: Alert and oriented to person, follows commands, No sensory deficits. HEENT: Face is symmetric. Pupils are equal and reactive. Extraocular movements are intact. NECK: Supple. No thyromegaly. No submental, submandibular, pre-/postauricular, occipital or supraclavicular lymphadenopathy. CHEST: Normal chest expansion. No Telemetry. LUNGS: Absence of any rales, rhonchi or any wheezing. CARDIOVASCULAR: Regular. S1 and S2 normal. No appreciable rubs, murmurs or gallops. ABDOMEN: Soft, nontender, and nondistended. There is no rebound, voluntary guarding, or rigidity. : Deferred. No Mcgill. EXTREMITIES: Non-edematous and not cyanotic. No clubbing. Good capillary refill. SKIN: No skin breakdown. Vital Signs (last 8hr) Date Time Temp Pulse Resp B/P (MAP) Pulse Ox O2 Delivery O2 Flow Rate FiO2 05/25/25 15:40 97.9 87 18 117/75 94 Room Air 05/25/25 11:52 97.9 81 18 121/56 97 Room Air LABS: Laboratory: Test 05/25/25 12:01 05/25/25 03:49 05/24/25 03:35 Range/Units Prothrombin Time 10.9 9.6-11.6 SEC Prothromb Time International Ratio 1.03 0.85-1.15 Activated Partial Thromboplast Time 27.1 26.3-35.5 SEC White Blood Count 10.5 4.8-10.8 K/uL Red Blood Count 3.78 L 4.00-5.50 MIL/uL Hemoglobin 11.5 L 12.0-16.0 g/dL Hematocrit 34.7 L 36-48 % Mean Corpuscular Volume 91.8 79-99 fL Mean Corpuscular Hemoglobin 30.4 27.0-33.0 pg Mean Corpuscular Hemoglobin Concent 33.1 32.0-36.0 g/dL Red Cell Distribution Width 13.2 11.0-15.5 % Platelet Count 223 130-400 K/uL Mean Platelet Volume 12.5 H 7.5-10.5 fL Immature Granulocyte % (Auto) 0.4 0-1 % Neutrophils (%) (Auto) 67.0 40.0-77.0 % Lymphocytes (%) (Auto) 20.2 L 21.0-51.0 % Monocytes (%) (Auto) 9.8 3.0-13.0 % Eosinophils (%) (Auto) 2.2 0.0-8.0 % Basophils (%) (Auto) 0.4 0.0-5.0 % Neutrophils # (Auto) 7.0 1.8-7.7 K/uL Lymphocytes # (Auto) 2.1 1.0-4.8 K/uL Monocytes # (Auto) 1.0 0.1-1.0 K/uL Eosinophils # (Auto) 0.23 0.00-0.70 K/uL Basophils # (Auto) 0.04 0.00-0.20 K/uL Absolute Immature Granulocyte (auto 0.04 0-1 K/uL Nucleated Red Blood Cells 0.0 0.0-0.19 % Sodium Level 136 136-145 mmol/L Potassium Level 3.8 3.5-5.1 mmol/L Chloride Level 101 101-111 mmol/L Carbon Dioxide Level 24 21-32 mmol/L Blood Urea Nitrogen 25 H 7-18 mg/dL Creatinine 1.0 0.5-1.0 mg/dL Glomerular Filtration Rate Calc 57 >90 mL/min Random Glucose 108 H 70-105 mg/dL Total Calcium 8.7 8.5-10.1 mg/dL Magnesium Level 1.90 1.80-2.40 mg/dL Total Bilirubin 0.4 0.2-1.0 mg/dL Direct Bilirubin 0.1 0.0-0.3 mg/dL Aspartate Amino Transf (AST/SGOT) 89 H 10-37 U/L Alanine Aminotransferase (ALT/SGPT) 34 12-78 U/L Alkaline Phosphatase 78 50-136 U/L Troponin I High Sensitivity 26878 *H 4-50 ng/L B-Type Natriuretic Peptide 868 H 0-100 pg/mL Total Protein 7.4 6.0-8.3 g/dL Albumin 3.2 L 3.5-5.0 g/dL Current Medications Medications (Trade) Dose Ordered Sig/Caitlyn Route PRN Reason Start Time Stop Time Status Last Admin Dose Admin Acetaminophen (TYLenol 325MG TAB) 650 mg Q6H PRN PO MILD PAIN (1-3) 05/21/25 15:00 06/20/25 14:59 Amoxicillin/ Clavulanate Potassium (Augmentin 500-125 Tablet) 1 each Q12H PO 05/23/25 16:00 05/24/25 15:55 DC 05/24/25 14:51 1 EACH Aspirin (Aspirin 81mg Ec Tab) 81 mg DAILY PO 05/22/25 09:00 06/21/25 08:59 05/25/25 09:58 81 MG Atorvastatin Calcium (LIPItor 40MG) 40 mg HS PO 05/21/25 21:00 06/20/25 20:59 05/24/25 21:17 40 MG Ceftriaxone Sodium (ROCEphine 1G INJ) 1 gm Q24H IVPB 05/24/25 16:00 06/03/25 15:59 05/25/25 16:23 1 GM Dextrose (D50w) 50 ml AD PRN IV HYPOGLYCEMIA PROTOCOL 05/21/25 13:30 06/20/25 13:29 UNV Dextrose (D50w) 50 ml AD PRN IV HYPOGLYCEMIA PROTOCOL 05/21/25 14:00 06/20/25 13:59 Enoxaparin Sodium (Lovenox) 40 mg HS SQ 05/22/25 21:00 06/21/25 20:59 12/8/25 21:25 40 MG Eptifibatide 100 ml @ 0 mls/hr PROTOCOL IV 05/21/25 14:00 05/22/25 00:01 DC Famotidine (Pepcid 20mg Tab) 20 mg BID PO 05/22/25 21:00 05/22/25 20:31 DC Famotidine (Pepcid 20mg Tab) 20 mg DAILY PO 05/22/25 09:00 06/21/25 08:59 05/25/25 09:58 20 MG Furosemide (LASix 20MG TAB) 20 mg BID@09,17 PO 05/25/25 17:00 06/24/25 16:59 05/25/25 16:23 20 MG Furosemide (LASix 20MG TAB) 20 mg DAILY PO 05/24/25 09:00 05/24/25 10:33 DC Furosemide (LASix 20MG VIAL) 20 mg BIDMEALS IV 05/24/25 10:30 05/25/25 16:07 DC 05/25/25 10:02 20 MG Glucagon (Glucagon 1mg Kit) 1 mg AD PRN IM HYPOGLYCEMIA PROTOCOL 05/21/25 13:30 06/20/25 13:29 UNV Glucagon (Glucagon 1mg Kit) 1 mg AD PRN IM HYPOGLYCEMIA PROTOCOL 05/21/25 14:00 06/20/25 13:59 Insulin Human Regular (humuLIN R 100 UNIT/ML 3ML) INSULIN SLIDING SCAL... ACHS SQ 05/21/25 16:30 05/21/25 14:29 DC Ipratropium Hodges (AtrovENT UD) 0.5 mg Q6H PRN IH SHORTNESS OF BREATH 05/21/25 14:30 06/20/25 14:29 Isosorbide Mononitrate (Imdur 30mg Sr) 30 mg DAILY PO 05/22/25 09:00 06/21/25 08:59 05/25/25 09:58 30 MG Magnesium Sulfate 50 ml @ 0 mls/hr PROTOCOL IV 05/21/25 14:00 06/20/25 13:59 05/25/25 07:34 25 MLS/HR Metoprolol Succinate (TopROL XL) 12.5 mg DAILY PO 05/22/25 09:00 05/25/25 16:07 DC 05/25/25 09:58 12.5 MG Metoprolol Succinate (TopROL XL) 25 mg DAILY PO 05/26/25 09:00 06/25/25 08:59 Ondansetron HCl (zoFRAN 4MG INJ) 4 mg Q6H PRN IVP NAUSEA/VOMITING 05/21/25 15:00 06/20/25 14:59 Potassium Chloride 100 ml @ 100 mls/hr AD PRN IV POTASSIUM PROTOCOL 05/21/25 14:00 06/20/25 13:59 Potassium Chloride (K-Dur/Klor-Con 20meq) 20 meq AD PRN PO POTASSIUM PROTOCOL 05/21/25 14:00 06/20/25 13:59 05/25/25 07:35 20 MEQ Potassium Chloride (KCl 10% Elixir 20meq/15ml) 20 meq AD PRN PO POTASSIUM PROTOCOL 05/21/25 14:00 06/20/25 13:59 Sacubitril/ Valsartan (Entresto 24 Mg-26 Mg Tablet) 1 each BID PO 05/23/25 11:00 06/22/25 10:59 05/25/25 09:58 1 EACH Sodium Chloride 1,000 ml @ 100 mls/hr Q10H IV 05/21/25 13:30 05/21/25 16:29 DC Ticagrelor (BRILinta) 90 mg BID PO 05/21/25 21:00 06/20/25 20:59 05/25/25 09:58 90 MG DIAGNOSTICS / RADIOLOGY: CORONARY ARTERY DESCRIPTIONS: The LCx arises from the same ostia as the RCA off the right coronary cusp and courses retrograde to the aorta. Left anterior descending coronary artery: Normal caliber vessel and gives rise to diagonal and septal branches. There is a patent drug eluting stent in the proximal LAD. Left circumflex coronary artery: Normal caliber, nondominant and gives rise to a large OM branch. No stenosis. Right coronary artery: Large, dominant vessel giving rise to the PL and PDA branches. There is mixed plaque in the proximal RCA with 50-60% stenosis and 60- 70% stenosis in the mid RCA. Thoracic Aorta: Normal diameter. Sabrina Kelley MD Cardiovascular Disease [facility] ASSESSMENT: ST-elevation IL/ACS, POA Status post PCI with findings of 100% thrombotic occlusion of the proximal LAD status post balloon angioplasty and GRACE placement by Dr. 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 Ryan, 05/21/2025: * Patient will continue with close monitoring in CCU post STEMI/ACS * Continue with post catheterization care per recommendations by Dr. 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 If the LCX goes around the aorta, then per Dr. Ryan, tentatively schedule the patient for staged PCI of the RCA and LCX early next week * CTA revealed LCX arises from the same ostia as the RCA of the right coronary cusp and courses retrograde to the aorta. Tentatively she will receive the staged PCI of the RCA and LCX this admission. Acute hypoxemic respiratory failure, POA (resolved) * Patient off of nasal cannula now on room air Urinary tract infection,POA * Her urinalysis showed evidence of UTI. * We started her on Rocephin 1 g daily (day2) * Urine culture was positive for E coli and Proteus mirabilis. Paratracheal mass POA * Chest x-ray revealed moderate-sized right paratracheal mass. * She may need further imaging to delineate the lesion. * We will consider pulmonology on board GI prophylaxis with famotidine 20 mg DVT prophylaxis with enoxaparin sodium We will repeat a.m. labs Further treatment based on the results ATTESTATION BY PHYSICIAN I have seen and examined the patient. I reviewed the documentation, medical decision making, and treatment plan as noted by the resident physician above. I agree with the findings and plan of care. SHANTEL WAHL MD, SUNIL MD May 25, 2025 17:04
--- NOTE | 2025-05-25 18:46 | PN ---
[facility] PROGRESS NOTE Date Patient Seen: May 25, 2025 Time of Visit: 18:41 Supervising Physician: STORMY MUNOZ MD PROBLEM LIST: Acute ST-elevation myocardial infarction present at the time of admission Status post left heart catheterization resulting in stent placement to the LAD Atherosclerosis Primary hypertension Obstructive coronary artery disease Suspected chest versus lung mass INTERVAL HISTORY: Patient is seen and evaluated. Events of the last 24 hours noted. Patient is currently on 2 L O2 via nasal cannula. Awake and alert and following commands without acute distress. No fevers, no chills, no nausea or vomiting. Tolerating oral intake, no nausea. Voiding, no urgency or dysuria Negative for fever or chills Negative for chest pain Primary care team concerned about the possibility of a mass noted on the chest x-ray on the anterior chest wall just above the right lung. REVIEW OF SYSTEMS: 12 point ROS reviewed with patient. Pertinent positives mentioned above. Otherwise negative. PHYSICAL EXAM: GENERAL: alert, weak, awake oriented x 3 HEENT: EOMI, Sclera non icteric, moist mucosa NECK: Supple, no JVD, trachea midline LUNGS: Clear breath sounds bilaterally. No wheezes HEART: Regular rate and rhythm. Normal S1 and S2, without murmurs ABD: Abdomen soft, nontender. Bowel sounds present EXT: No clubbing cyanosis or edema NEURO: Alert and oriented to person, follows commands Vital Signs (last 8hr) Date Time Temp Pulse Resp B/P (MAP) Pulse Ox O2 Delivery O2 Flow Rate FiO2 05/25/25 15:40 97.9 87 18 117/75 94 Room Air 05/25/25 11:52 97.9 81 18 121/56 97 Room Air LABS: Hematology Labs: Test 05/25/25 03:49 Range/Units White Blood Count 10.5 4.8-10.8 K/uL Red Blood Count 3.78 L 4.00-5.50 MIL/uL Hemoglobin 11.5 L 12.0-16.0 g/dL Hematocrit 34.7 L 36-48 % Mean Corpuscular Volume 91.8 79-99 fL Mean Corpuscular Hemoglobin 30.4 27.0-33.0 pg Mean Corpuscular Hemoglobin Concent 33.1 32.0-36.0 g/dL Red Cell Distribution Width 13.2 11.0-15.5 % Platelet Count 223 130-400 K/uL Mean Platelet Volume 12.5 H 7.5-10.5 fL Immature Granulocyte % (Auto) 0.4 0-1 % Neutrophils (%) (Auto) 67.0 40.0-77.0 % Lymphocytes (%) (Auto) 20.2 L 21.0-51.0 % Monocytes (%) (Auto) 9.8 3.0-13.0 % Eosinophils (%) (Auto) 2.2 0.0-8.0 % Basophils (%) (Auto) 0.4 0.0-5.0 % Neutrophils # (Auto) 7.0 1.8-7.7 K/uL Lymphocytes # (Auto) 2.1 1.0-4.8 K/uL Monocytes # (Auto) 1.0 0.1-1.0 K/uL Eosinophils # (Auto) 0.23 0.00-0.70 K/uL Basophils # (Auto) 0.04 0.00-0.20 K/uL Absolute Immature Granulocyte (auto 0.04 0-1 K/uL Nucleated Red Blood Cells 0.0 0.0-0.19 % Chemistry Labs: Test 05/25/25 03:49 05/24/25 03:35 Range/Units Sodium Level 136 136-145 mmol/L Potassium Level 3.8 3.5-5.1 mmol/L Chloride Level 101 101-111 mmol/L Carbon Dioxide Level 24 21-32 mmol/L Blood Urea Nitrogen 25 H 7-18 mg/dL Creatinine 1.0 0.5-1.0 mg/dL Glomerular Filtration Rate Calc 57 >90 mL/min Random Glucose 108 H 70-105 mg/dL Total Calcium 8.7 8.5-10.1 mg/dL Magnesium Level 1.90 1.80-2.40 mg/dL Total Bilirubin 0.4 0.2-1.0 mg/dL Direct Bilirubin 0.1 0.0-0.3 mg/dL Aspartate Amino Transf (AST/SGOT) 89 H 10-37 U/L Alanine Aminotransferase (ALT/SGPT) 34 12-78 U/L Alkaline Phosphatase 78 50-136 U/L Troponin I High Sensitivity 09516 *H 4-50 ng/L B-Type Natriuretic Peptide 868 H 0-100 pg/mL Total Protein 7.4 6.0-8.3 g/dL Albumin 3.2 L 3.5-5.0 g/dL Coagulation Labs: Test 05/25/25 12:01 Range/Units Prothrombin Time 10.9 9.6-11.6 SEC Prothromb Time International Ratio 1.03 0.85-1.15 Activated Partial Thromboplast Time 27.1 26.3-35.5 SEC DIAGNOSTICS / RADIOLOGY RESULTS: I personally reviewed the chest x-ray. Based on my initial evaluation there appears to be some type of white shadow the center of the chest just above the aorta which is visible on the chest x-ray however the CT angiogram does not show the same finding over the mediastinum and there does not appear to be any mass noted in this area. I placed special attention to the mediastinum area and it appears that the shadow that is visible on the chest x-ray is consistent with the main pulmonary artery. It appears that the patient has very prominent pulmonary veins however, I am going to wait for the final official report from Radiology and I have already notified my findings via telephone to the primary care team. PLAN Follow-up with radiology report of the CT angiogram of the chest Recommend AVAPS for this patient Case management consult for assistance in obtaining the noninvasive ventilator Device for home Continue supplemental oxygen Continue aspirin Continue beta-benjamin Continue statin Up and ambulatory daily NEURO: Minimize central acting medications as possible. Maintain fall precautions, adequate lighting during the day PULMONARY: Supplemental 02 as needed. Maintain aspiration precautions at all times CARDIOVASCULAR: Follow hemodynamics. Vital signs per facility protocol GI & NUTRITION: Continue with nutritional support. Continue stool softeners and laxatives as needed. KIDNEYS & ELECTROLYTES: Strict monitoring of intake, output and overall fluid balance. Avoid nephrotoxic medications to the extent possible. Medications to be dosed according to renal function. Monitor electrolytes and replace as needed ENDOCRINE: Maintain blood glucose between 100-180 at all times. Hypoglycemia protocol in place INFECTIOUS DISEASE: Trend temperature, WBC and procalcitonin level Follow cultures, deescalate antibiotics as soon as possible. Panculture if new onset fever ONCOLOGY/HEMATOLOGY/COAGULATION: Monitor for s/s of bleeding Monitor hemoglobin, coagulation studies as needed SKIN: Pressure ulcer prevention per facility protocol Specialty mattress ORTHO/REHAB: Continue PT/OT Prophylaxis: Continue GI and DVT prophylaxis Code Status: Full Resuscitation Disposition: As per PCP I personally scribed for STORMY MUNOZ MD ([email or web address]) on 05/25/25 at 18:46. Electronically submitted by Genaro Escamilla ([email or web address]). STORMY MUNOZ MD May 25, 2025 18:46
[2025-05-26] VITALS (7 sets, daily range): BP systolic 99–124; BP diastolic 49–65; PULSE 62–92; RESP 16–18; TEMP 97.7–98.1; O2SAT 98–100
[2025-05-26 03:51] LABS: IMMATURE GRANULOCYTE ABSOLUTE 0.02 K/uL (0-1); NUCLEATED RED BLOOD CELLS 0.0 % (0.0-0.19); PLATELET COUNT (AUTO) 246 K/uL (130-400); RED BLOOD CELL COUNT(AUTO) 4.02 MIL/uL (4.00-5.50); RED CELL DISTRIBUTION WIDTH 13.1 % (11.0-15.5); WHITE BLOOD COUNT (AUTO) 8.7 K/uL (4.8-10.8)
[2025-05-26 04:02] LABS: ASPARTATE AMINOTRANSFERASE 35.0 U/L (10-37); CREATININE 1.0 mg/dL (0.5-1.0); GLOMERULAR FILTR. RATE CALC 57.0 mL/min (>90); GLUCOSE,RANDOM 105.0 mg/dL (70-105); SODIUM SERUM 135.0 mmol/L (136-145); TOTAL PROTEIN, SERUM 7.5 g/dL (6.0-8.3); UREA NITROGEN, BLOOD 28.0 mg/dL (7-18)
--- NOTE | 2025-05-26 10:36 | PN ---
[facility] CARDIOLOGY PROGRESS NOTE Date Patient Seen: May 26, 2025 Time of Visit: 10:29 Interval History: [No acute events overnight , right groin access appears clean , the patient denies any cardiac symptoms or anginal equivalents , ] Physical Examination: General: Awake and alert. No acute distress. Chronically ill appearing. HEENT: Normocephalic, atraumatic. EOMI. Oral mucosa was moist. Neck: No masses, JVD, or carotid bruits. Lungs: No respiratory distress. SCM. Bilateral air entry. Diminished breath sounds noted to the bilateral lower lung john. Cardio: Regular rate. Normal S1 and S2, +S4. No murmurs, rubs, or gallops. Abdomen: Soft, nontender, nondistended. No organomegaly. Normoactive bowel sounds x 4 quadrants. Extremities. No edema, clubbing, or cyanosis. +2 pulses noted throughout. Neuro: Cranial nerves II through XII are grossly intact. No focal deficits identified. Laboratory: [ ] Hematology Labs: Test 05/26/25 03:39 Range/Units White Blood Count 8.7 4.8-10.8 K/uL Red Blood Count 4.02 4.00-5.50 MIL/uL Hemoglobin 12.3 12.0-16.0 g/dL Hematocrit 37.1 36-48 % Mean Corpuscular Volume 92.3 79-99 fL Mean Corpuscular Hemoglobin 30.6 27.0-33.0 pg Mean Corpuscular Hemoglobin Concent 33.2 32.0-36.0 g/dL Red Cell Distribution Width 13.1 11.0-15.5 % Platelet Count 246 130-400 K/uL Mean Platelet Volume 12.4 H 7.5-10.5 fL Immature Granulocyte % (Auto) 0.2 0-1 % Neutrophils (%) (Auto) 65.2 40.0-77.0 % Lymphocytes (%) (Auto) 22.1 21.0-51.0 % Monocytes (%) (Auto) 9.4 3.0-13.0 % Eosinophils (%) (Auto) 2.5 0.0-8.0 % Basophils (%) (Auto) 0.6 0.0-5.0 % Neutrophils # (Auto) 5.7 1.8-7.7 K/uL Lymphocytes # (Auto) 1.9 1.0-4.8 K/uL Monocytes # (Auto) 0.8 0.1-1.0 K/uL Eosinophils # (Auto) 0.22 0.00-0.70 K/uL Basophils # (Auto) 0.05 0.00-0.20 K/uL Absolute Immature Granulocyte (auto 0.02 0-1 K/uL Nucleated Red Blood Cells 0.0 0.0-0.19 % Chemistry Labs: Test 05/26/25 03:39 Range/Units Sodium Level 135 L 136-145 mmol/L Potassium Level 4.1 3.5-5.1 mmol/L Chloride Level 101 101-111 mmol/L Carbon Dioxide Level 23 21-32 mmol/L Blood Urea Nitrogen 28 H 7-18 mg/dL Creatinine 1.0 0.5-1.0 mg/dL Glomerular Filtration Rate Calc 57 >90 mL/min Random Glucose 105 70-105 mg/dL Total Calcium 8.9 8.5-10.1 mg/dL Magnesium Level 2.50 H 1.80-2.40 mg/dL Total Bilirubin 0.3 0.2-1.0 mg/dL Aspartate Amino Transf (AST/SGOT) 35 10-37 U/L Alanine Aminotransferase (ALT/SGPT) 29 12-78 U/L Alkaline Phosphatase 77 50-136 U/L B-Type Natriuretic Peptide 539 H 0-100 pg/mL Total Protein 7.5 6.0-8.3 g/dL Albumin 3.2 L 3.5-5.0 g/dL Coagulation Labs: Test 05/25/25 12:01 Range/Units Prothrombin Time 10.9 9.6-11.6 SEC Prothromb Time International Ratio 1.03 0.85-1.15 Activated Partial Thromboplast Time 27.1 26.3-35.5 SEC Diagnostics / Radiology: [Copy/Paste Echos/Imaging Report here] Impression and Plan: [-ACS-STEMI: Culprit lesion - 100% thrombotic occlusion in the proximal LAD s/p successful PCI with PTCA and GRACE placement (XS 3.0 x 23 mm) in the proximal LAD done on 05/21/2025 -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 -Staged PCI of the LCx and RCA will be planned as an outpatient. -Continue aspirin 81 mg daily, ticagrelor 90 mg BID, metoprolol succinate 25 mg daily, isosorbide mononitrate ER 30 mg daily, and atorvastatin 40 mg QHS. The patient will remain on DAPT for a minimum of 1 year as per ACS guidelines. 2. HFmrEF ICM-LVEF: 40-45% by echo done 05/22/2025)- NYHA I -24H urine output: 650 mL -Strict Is and Os with daily weights . Continue furosemide l 20 mg PO BID -Optimize GDMT : Continue metoprolol succinate 25 mg daily and Entresto 24/26 mg BID. Thank you for this consult , from the cardiology stand point the patient can be discharge with close follow up 1-2 weeks after discharge with Dr Shelby Kelley MD ATTESTATION BY PHYSICIAN I have seen and examined the patient, reviewed the above documentation, participated in medical decision making, made necessary modifications, and agree with the treatment plan as documented by my mid-level provider above. MD WAI Montenegro JAMES R MD May 26, 2025 10:36
--- NOTE | 2025-05-26 12:59 | DS ---
Discharge Summary Hospital Course Summary: SUBJECTIVE: This is a 79-year-old female with history of hypertension, hyperlipidemia, who presented as a transfer from [facility]. Patient initially presented to the ER in [facility] with chief complaint of severe chest pain with associated radiation to the left shoulder and left arm. Symptoms started close to 10:00 p.m. last night and was progressive in intensity. Patient denies any previous history of cardiac comorbidities. She reports having history of hypertension and has been maintained on low-dose lisinopril as outpatient. She also reports taking Crestor as outpatient. Chest pain improved after receiving nitroglycerin. Patient underwent 12 lead EKG which showed findings of ST- elevation in the anterior leads. Patient was subsequently transferred to [facility] for management of ST-elevation WI. Patient underwent emergent cardiac catheterization by Dr. Kimbrough which showed findings of 100% thrombotic occlusion of the proximal LAD and patient underwent successful treatment with balloon angioplasty and GRACE placement to the proximal LAD. Patient was also found to have residual CAD involving proximal left circumflex with 72 80% stenosis and 80% stenosis involving the mid RCA. 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 Patient was seen postprocedure, patient denies active chest pain. She is feeling better post PCI. Plan is to obtain CT coronary angiogram tomorrow to investigate the anomalous left circumflex to assess to see if it is from intramuscular versus if it goes around the aorta. Patient will be monitored closely and we will see how patient progresses in the next 48-72 hours. On the floor she was continued on dual antiplatelet therapy with mg p.o. daily, Brilinta 90 mg p.o. , metoprolol and atorvastatin. Her urine culture was positive for Proteus mirabilis and E coli. She was started on Rocephin1 g daily. the patient scheduled to undergo a CT coronary angiogram to assess the anomalous left circumflex and determine its course (intramuscular versus around the aorta). If the LCX goes around the aorta, then per Dr. Kimbrough, tentatively schedule the patient for staged PCI of the RCA and LCX. Cardiology started Entresto and furosemide 20 mg IV today followed by Lasix 20 mg p.o. daily. CTA revealed LCX arising from right coronary cusp same ostia as RCA. She was scheduled for the staged PCI but was postponed because of the busy schedule. Her chest x-ray also revealed concern of right paratracheal mass for which pulmonology was consulted. Dr. lopez reviewed the imaging of coronary CTA which look more like a pulmonary vein representing as a right paratracheal mass. Cardiology . Her with the discharge with continuation of expcgxa39 mg, ticagrelor 90 mg b.i.d., metoprolol [id number] mg daily, isosorbide mononitrate ER 30 mg daily, atorvastatin 40 mg q.h.s., furosemide 20 mg per oral b.i.d.. She will follow up to Dr. Kimbrough in 1 week to scheduled for staged PCI. She will also continue nitrofurantoin 100 mg twice a day for5 days for the UTI. Follow up with your PCP within 2-3 days. She may need to repeat CT chest with contrast to reconfirm the right paratracheal mass on chest x-ray. 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 -Staged PCI of the LCx and RCA will be planned as an outpatient. -Continue aspirin 81 mg daily, ticagrelor 90 mg BID, metoprolol succinate 25 mg daily, isosorbide mononitrate ER 30 mg daily, and atorvastatin 40 mg QHS. The patient will remain on DAPT for a minimum of 1 year as per ACS guidelines. 2. HFmrEF ICM-LVEF: 40-45% by echo done 05/22/2025)- NYHA I -24H urine output: 650 mL -Strict Is and Os with daily weights . Continue furosemide l 20 mg PO BID -Optimize GDMT : Continue metoprolol succinate 25 mg daily and Entresto 24/26 mg BID. Thank you for this consult , from the cardiology stand point the patient can be discharge with close follow up 1-2 weeks after discharge with Dr Shelby Kelley MD ATTESTATION BY PHYSICIAN I have seen and examined the patient, reviewed the above documentation, participated in medical decision making, made necessary modifications, and agree with the treatment plan as documented by my mid-level provider above. Guillermo Kelley MD Procedure(s): Indications: ACS STEMI Procedures: Coronary angiogram, PCI with balloon angioplasty, IVUS assessment, and GRACE placement in the proximal LAD, femoral angiogram Introduction: After informed written consent was obtained, the patient was brought to the Catheterization Lab in the usual fasting state. Following sterile prep and drape, a time out was performed, then moderate sedation was administered, 1mg of Versed and 50mcg of Fentanyl, then 1% Lidocaine was infiltrated into the right femoral groin. Using a Modified Seldinger technique, a 6Fr Sheath was inserted into the right common femoral artery. While under fluoroscopic guidance, diagnostic coronary catheters were advanced over a wire into the central circulation where they were aspirated, flushed and placed to pressure monitoring, once the wire was removed. Coronary Angio: The left and right coronary arteries were engaged with appropriate catheters and angiography was performed under continuous pressure monitoring. Left Heart Catheterization: A pigtail catheter was inserted into the LV and the pressure was recorded, then the catheter was removed from the LV. Cardiac Findings: Right dominant system LM: Medium caliber vessel with mild luminal irregularities. LAD: Medium caliber vessel with 100% thrombotic occlusion of the proximal LAD. 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 The rest of the vessel has mild luminal irregularities. OM1: Small caliber vessel mild luminal irregularities OM2: Small caliber vessel mild luminal irregularities RCA: Medium caliber vessel with 40% stenosis in the proximal ICA and 80% stenosis in the mid RCA. RPDA: Small caliber vessel with mild luminal irregularities RPLV: Small caliber vessel with 50% stenosis in the ostial RPL be Medications given: Versed 1mg, Fentanyl 25mcg, heparin 5000 units, Integrilin IV and IC bolus followed by drip, nitroglycerin 200mcg, ticagrelor 180 mg Coronary Intervention: Guide catheter: JL4 Guidewire: 0.014 run-through, 0.014 BMW After reviewing the above mentioned findings the decision was made to intervene on the LAD. The JL 4 guide catheter was advanced into the ostial left main. We then advanced in the 0.014 runthrough guidewire across the area stenosis/thrombosis in the distal LAD. We then performed balloon angioplasty (2.0 x 10 mm > 2.5 x 15 mm) in the proximal LAD. Door to balloon time 48 minutes. We then administered entirely IV, IC bolus followed by IV. We then performed IVUS assessment of the proximal LAD. We then performed successful GRACE placement (Xience skypoint 3.0 x 23 mm) in the proximal LAD. The stent was post dilated using a 3.5 x 12 mm balloon achieving optimal results. Repeat angiography then revealed a widely patent and in the proximal LAD and SAUL three flow distally. The 0.014 runthrough guidewire, balloon and JL4 were then removed. Complications: None Conscious Sedation Monitoring: Under my direct order and supervision, medication for moderate conscious sedation was administered by the nursing staff and the patients level of consciousness and physiological status was monitored by an independent trained nurse. Closure of Access Site: After the case completed the sheath was pulled and a 6Fr Angioseal was deployed in the right common femoral artery without complication. Conclusion: 1. ACS-STEMI: Culprit lesion - 100% thrombotic occlusion in the proximal LAD status post successful treatment with balloon angioplasty and GRACE placement (Xience skypoint 3.0 x 23 mm). The stent was post dilated achieving optimal results 2. 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 Continue goal-directed medical therapy 2. Continue Integrilin IV drip for a total 12 hours (end time 12:00 a.m.) 3. Continue ticagrelor 90 mg BID and aspirin 81 mg daily. The patient will remain on that for a minimum of one year. 4. We will order a coronary CTA to evaluate the anomalous LCX and determine its course (intramuscular versus around the aorta). If the LCX goes around the aorta, then we will tentatively schedule the patient for staged PCI of the RCA and LCX on Saturday morning. 5. Groin precautions 6. 6 hours of bed rest 7. Start NS at 100 mL/hour x3 hours. 8. Please order an echocardiogram to assess systolic/diastolic function 9. Please order cardiac enzymes-high sensitivity troponin I and an ECG in the a.m. 10. Start metoprolol succinate 12.5 mg daily and atorvastatin 40 mg qhs. ALKA KIMBROUGH MD May 21, 2025 13:43 Electronically Signed by: ALKA KIMBROUGH MD05/21/25 1434 Electronically Co-Signed by: DATE: May 24, 2025 QUALITY: Excellent CLINICAL HISTORY AND INDICATION: [ Anamolous LCx ] TECHNIQUE: After obtaining a preliminary creative specialist image, contrast imaging performed on an Aquillon [id number] scanner. A dedicated, limited window, coronary imaging protocol was used, with single breath-hold, retrospective ECG gating, and automated arrhythmia rejection. 100 cc of low osmolar contrast agent: Omnipaque 350 was delivered via a 18-gauge IV catheter in the right antecubital fossa, using a power injector and followed by 60 cc of normal saline bolus as a chaser. Collimated images were reformatted at 0.5 mm intervals, and sent to an offline independent workstation for interpretation, using 3D anatomic reconstructions: Curved multiplanar reconstructions, maximum intensity projections, and multiplanar imaging. 10 mg IV metoprolol was administered prior to scanning. 0.8 mg SL nitroglycerin was given. CORONARY ARTERY DESCRIPTIONS: The LCx arises from the same ostia as the RCA off the right coronary cusp and courses retrograde to the aorta. Left anterior descending coronary artery: Normal caliber vessel and gives rise to diagonal and septal branches. There is a patent drug eluting stent in the proximal LAD. Left circumflex coronary artery: Normal caliber, nondominant and gives rise to a large OM branch. No stenosis. Right coronary artery: Large, dominant vessel giving rise to the PL and PDA branches. There is mixed plaque in the proximal RCA with 50-60% stenosis and 60- 70% stenosis in the mid RCA. Thoracic Aorta: Normal diameter. Monica Kelley MD Cardiovascular Disease [facility] MONICA KELLEY MD May 24, 2025 18:50 Electronically Signed by: MONICA KELLEY MD05/24/25 1850 Electronically Co-Signed by: Assessment/Plan: ASSESSMENT: ST-elevation WI/ACS, POA Status post PCI with findings of 100% thrombotic occlusion of the proximal LAD status post balloon angioplasty and GRACE placement by Dr. 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 -We have started you on, yeyflyd31 mg daily, ticagrelor 90 mg twice daily, atorvastatin 40 mg at night, furosemide 20 mg twice daily, isosorbide mononitrate ER 30 mg daily, metoprolol succinate 25 mg daily, Entresto 24/26 mg twice a day. Please continue these medications as instructed. -We stopped your rosuvastatin 40 mg and amlodipine besylate/benazepril. Please do not continue these medications. -For UTI, we have also prescribed you on nitrofurantoin 100 mg twice a day for 5 days. Please take as instructed. -Your chest x-ray revealed moderate size right paratracheal mass. Pulmonology reviewed the coronary CTA which more looks like a pulmonary vein. Please discuss with PCP to get CT chest with contrast to confirm it. -You have to follow up to cardiology(Dr Kimbrough) in 1 week at [facility] for the staged PCI planning. -Please follow up to PCP within 2-3 days Home Medications: Active Scripts Nitrofurantoin Macrocrystal (Nitrofurantoin) 100 Mg Capsule, 1 CAP PO BID for 5 Days, #10 CAP 0 Refills Prov:DANA TIJERINA MD 05/26/25 Sacubitril/Valsartan (Entresto 24 mg-26 mg Tablet) 24 Mg-26 Mg Tablet, 1 TAB PO BID for 30 Days, #60 TAB 0 Refills Prov:DANA TIJERINA MD 05/26/25 Furosemide (Furosemide) 20 Mg Tablet, 1 TAB PO BID for 30 Days, #30 TAB 0 Refills Prov:DANA TIJERINA MD 05/26/25 Atorvastatin Calcium (Atorvastatin Calcium) 40 Mg Tablet, 1 TAB PO HS PRN for daily for 30 Days, #30 TAB 0 Refills Prov:DANA TIJERINA MD 05/26/25 Isosorbide Mononitrate (Isosorbide Mononitrate ER) 30 Mg Tab.er.24h, 1 TAB PO DAILY for 30 Days, #30 TAB 0 Refills Prov:DANA TIJERINA MD 05/26/25 Metoprolol Succinate (Metoprolol Succinate) 25 Mg Tab.er.24h, 1 TAB PO DAILY for 30 Days, #30 TAB 0 Refills Prov:DANA TIJERINA MD 05/26/25 Ticagrelor (Brilinta) 90 Mg Tablet, 1 TAB PO BID for 30 Days, #60 TAB 0 Refills Prov:DANA TIJERINA MD 05/26/25 Aspirin (ASPIRIN 81MG CHEW TAB) 81 Mg Tab.chew, 1 TAB PO DAILY for 30 Days, #30 TAB 0 Refills Prov:DANA TIJERINA MD 05/26/25 Discontinued Reported Medications Rosuvastatin Calcium (Rosuvastatin Calcium) 40 Mg Tablet, 1 TAB PO DAILY for high cholesterol for 30 Days, #30 TAB 0 Refills 05/21/25 Amlodipine Besylate/Benazepril (Lotrel 5-20 mg Capsule) 5 Mg-20 Mg Capsule, 1 CAP PO DAILY for 30 Days, #30 CAP 0 Refills 05/21/25 New Medications: Aspirin (Aspirin 81MG Chew Tab) 81 Mg Tab.chew 1 TAB PO DAILY for 30 Days, #30 TAB 0 Refills Atorvastatin Calcium (Atorvastatin Calcium) 40 Mg Tablet 1 TAB PO HS PRN for daily for 30 Days, #30 TAB 0 Refills Furosemide (Furosemide) 20 Mg Tablet 1 TAB PO BID for 30 Days, #30 TAB 0 Refills Isosorbide Mononitrate (Isosorbide Mononitrate ER) 30 Mg Tab.er.24h 1 TAB PO DAILY for 30 Days, #30 TAB 0 Refills Metoprolol Succinate (Metoprolol Succinate) 25 Mg Tab.er.24h 1 TAB PO DAILY for 30 Days, #30 TAB 0 Refills Nitrofurantoin Macrocrystal (Nitrofurantoin) 100 Mg Capsule 1 CAP PO BID for 5 Days, #10 CAP 0 Refills Sacubitril/Valsartan (Entresto 24 mg-26 mg Tablet) 24 Mg-26 Mg Tablet 1 TAB PO BID for 30 Days, #60 TAB 0 Refills Ticagrelor (Brilinta) 90 Mg Tablet 1 TAB PO BID for 30 Days, #60 TAB 0 Refills Discontinued Medications: Amlodipine Besylate/Benazepril (Lotrel 5-20 mg Capsule) 5 Mg-20 Mg Capsule 1 CAP PO DAILY for 30 Days, #30 CAP 0 Refills Rosuvastatin Calcium (Rosuvastatin Calcium) 40 Mg Tablet 1 TAB PO DAILY for high cholesterol for 30 Days, #30 TAB 0 Refills Time spent arranging discharge: 1-30 minutes ATTESTATION BY PHYSICIAN I have seen and examined the patient. I reviewed the documentation, medical decision making, and treatment plan as noted by the resident physician above. I agree with the findings and plan of care. Genaro Hernandez IV, MD, SUNIL MD May 26, 2025 12:59
--- NOTE | 2025-05-26 14:25 | NUR ---
Patient alert and oriented x4 with daughter at bedside being discharged home. Educated on new list of medications including side effects. Educated to crop picker prescription from pharmacy. Educated to follow up with cardiology as per scheduled eboni and PCP 2-3 days. IV removed without complications. ACS and Stroke education provided. All questions answered, patient and daughter verbalized complete understanding. Patient gathered all belongings and took with her at [place].
--- NOTE | 2025-05-26 22:55 | PN ---
[facility] PROGRESS NOTE Date Patient Seen: May 26, 2025 Time of Visit: 22:52 Supervising Physician: STORMY MUNOZ MD PROBLEM LIST: Acute ST-elevation myocardial infarction present at the time of admission Status post left heart catheterization resulting in stent placement to the LAD Atherosclerosis Primary hypertension Obstructive coronary artery disease Suspected chest versus lung mass INTERVAL HISTORY: Patient is doing well, she is seen and evaluated at bedside she is on room air, no acute distress awake, alert, following commands denies chest pain denies palpitation denies cough or congestion denies fevers voiding, no urgency or dysuria still has fatigue and generalized weakness REVIEW OF SYSTEMS: 12 point ROS reviewed with patient. Pertinent positives mentioned above. Otherwise negative. PHYSICAL EXAM: GENERAL: alert, weak, awake oriented x 3 HEENT: EOMI, Sclera non icteric, moist mucosa NECK: Supple, no JVD, trachea midline LUNGS: Clear breath sounds bilaterally. No wheezes HEART: Regular rate and rhythm. Normal S1 and S2, without murmurs ABD: Abdomen soft, nontender. Bowel sounds present EXT: No clubbing cyanosis or edema NEURO: Alert and oriented to person, follows commands LABS: Hematology Labs: Test 05/26/25 03:39 Range/Units White Blood Count 8.7 4.8-10.8 K/uL Red Blood Count 4.02 4.00-5.50 MIL/uL Hemoglobin 12.3 12.0-16.0 g/dL Hematocrit 37.1 36-48 % Mean Corpuscular Volume 92.3 79-99 fL Mean Corpuscular Hemoglobin 30.6 27.0-33.0 pg Mean Corpuscular Hemoglobin Concent 33.2 32.0-36.0 g/dL Red Cell Distribution Width 13.1 11.0-15.5 % Platelet Count 246 130-400 K/uL Mean Platelet Volume 12.4 H 7.5-10.5 fL Immature Granulocyte % (Auto) 0.2 0-1 % Neutrophils (%) (Auto) 65.2 40.0-77.0 % Lymphocytes (%) (Auto) 22.1 21.0-51.0 % Monocytes (%) (Auto) 9.4 3.0-13.0 % Eosinophils (%) (Auto) 2.5 0.0-8.0 % Basophils (%) (Auto) 0.6 0.0-5.0 % Neutrophils # (Auto) 5.7 1.8-7.7 K/uL Lymphocytes # (Auto) 1.9 1.0-4.8 K/uL Monocytes # (Auto) 0.8 0.1-1.0 K/uL Eosinophils # (Auto) 0.22 0.00-0.70 K/uL Basophils # (Auto) 0.05 0.00-0.20 K/uL Absolute Immature Granulocyte (auto 0.02 0-1 K/uL Nucleated Red Blood Cells 0.0 0.0-0.19 % Chemistry Labs: Test 05/26/25 03:39 Range/Units Sodium Level 135 L 136-145 mmol/L Potassium Level 4.1 3.5-5.1 mmol/L Chloride Level 101 101-111 mmol/L Carbon Dioxide Level 23 21-32 mmol/L Blood Urea Nitrogen 28 H 7-18 mg/dL Creatinine 1.0 0.5-1.0 mg/dL Glomerular Filtration Rate Calc 57 >90 mL/min Random Glucose 105 70-105 mg/dL Total Calcium 8.9 8.5-10.1 mg/dL Magnesium Level 2.50 H 1.80-2.40 mg/dL Total Bilirubin 0.3 0.2-1.0 mg/dL Aspartate Amino Transf (AST/SGOT) 35 10-37 U/L Alanine Aminotransferase (ALT/SGPT) 29 12-78 U/L Alkaline Phosphatase 77 50-136 U/L B-Type Natriuretic Peptide 539 H 0-100 pg/mL Total Protein 7.5 6.0-8.3 g/dL Albumin 3.2 L 3.5-5.0 g/dL Coagulation Labs: Test 05/25/25 12:01 Range/Units Prothrombin Time 10.9 9.6-11.6 SEC Prothromb Time International Ratio 1.03 0.85-1.15 Activated Partial Thromboplast Time 27.1 26.3-35.5 SEC DIAGNOSTICS / RADIOLOGY RESULTS: None today PLAN Hemodynamically stable from pulmonary standpoint for safe medical discharge from hospital continue aspirin continue Beta Marlen continue cardiac diet continue statin up and ambulatory ad aden NEURO: Minimize central acting medications as possible. Maintain fall precautions, adequate lighting during the day PULMONARY: Supplemental 02 as needed. Maintain aspiration precautions at all times CARDIOVASCULAR: Follow hemodynamics. Vital signs per facility protocol GI & NUTRITION: Continue with nutritional support. Continue stool softeners and laxatives as needed. KIDNEYS & ELECTROLYTES: Strict monitoring of intake, output and overall fluid balance. Avoid nephrotoxic medications to the extent possible. Medications to be dosed according to renal function. Monitor electrolytes and replace as needed ENDOCRINE: Maintain blood glucose between 100-180 at all times. Hypoglycemia protocol in place INFECTIOUS DISEASE: Trend temperature, WBC and procalcitonin level Follow cultures, deescalate antibiotics as soon as possible. Panculture if new onset fever ONCOLOGY/HEMATOLOGY/COAGULATION: Monitor for s/s of bleeding Monitor hemoglobin, coagulation studies as needed SKIN: Pressure ulcer prevention per facility protocol Specialty mattress ORTHO/REHAB: Continue PT/OT Prophylaxis: Continue GI and DVT prophylaxis Code Status: Full Resuscitation Disposition: As per PCP I personally scribed for STORMY MUNOZ MD ([email or web address]) on 05/26/25 at 22:55. Electronically submitted by Genaro Escamilla ([email or web address]). STORMY MUNOZ MD May 26, 2025 22:55
== END 2025-05-26 14:45 | disposition home or self-care (01) | DRG 321 ==
LOC: 2CH 11:30 → 2DH 05-22 09:49
PROVIDERS: ADMIT Internal Medicine; ATTEND Internal Medicine
PROC: 027034Z Dilation of Coronary Artery, One Artery with Drug-eluting Intraluminal Device, Percutaneous Approach (ICD-10-PCS; principal; 2025-05-21)
PROC: 4A023N7 Measurement of Cardiac Sampling and Pressure, Left Heart, Percutaneous Approach (ICD-10-PCS; 2025-05-21)
PROC: B2111ZZ Fluoroscopy of Multiple Coronary Arteries using Low Osmolar Contrast (ICD-10-PCS; 2025-05-21)
DX: I11.0 Hypertensive heart disease with heart failure (principal); I21.02 ST elevation (STEMI) myocardial infarction involving left anterior descending coronary artery; J96.01 Acute respiratory failure with hypoxia; I50.23 Acute on chronic systolic (congestive) heart failure; N39.0 Urinary tract infection, site not specified; Z79.02 Long term (current) use of antithrombotics/antiplatelets; D64.9 Anemia, unspecified; E11.9 Type 2 diabetes mellitus without complications; E78.5 Hyperlipidemia, unspecified; I25.10 Atherosclerotic heart disease of native coronary artery without angina pectoris; F41.9 Anxiety disorder, unspecified; Z98.61 Coronary angioplasty status; Z82.49 Family history of ischemic heart disease and other diseases of the circulatory system; Z79.899 Other long term (current) drug therapy; Z79.82 Long term (current) use of aspirin
CPT/HCPCS: 36415; 71045; 75574; 80048; 80053; 80061; 80076; 81001; 82550; 83036; 83735; 83880; 84443; 84484; 85025; 85027; 85347; 85610; 85730; 87086; 87186; 92978; 92979; 93005; 93306; 93356; 93454; 93458; 94664; 99156; 99157; C1760; C1769; C1887; C1894; C9606; G0378; J0583; J0696; J1327; J1644; J1650; J1938; J2250; J3010; J3475; J3490; Q9967; C1713; C1725; C1753; C1874; J0283; Q9965